=== PATIENT | female | born 1990 | race Caucasian/White ===

== ENCOUNTER 2019-10-15 16:40 | Emergency (ER) | payer OTHER ==
--- NOTE | 2019-10-15 16:45 | PDOC ---
Rapid Medical Evaluation Time Seen by Provider: 10/15/19 16:43 Medical Evaluation: Allergies Allergy/AdvReac Type Severity Reaction Status Date / Time No Known Allergies Allergy Verified 06/05/16 18:01 10/15/19 16:44 have performed a brief in-person evaluation of this patient. The patient presents with a chief complaint of: possible R wrist injury. Pt w/ h /o MR, non-verbal, W/C bound, seizures, from [facility] and [facility] staff after staff noted swelling to R wrist after pt returned from school today. No witnessed injury. Baseline otherwise Pertinent physical exam findings:? mild swelling to R wrist compared to L, no erythema. Pt does not grimace in pain w/ palpation to site I have ordered the following:XR The patient will proceed to the ED for further evaluation. Discharge Disposition - Diagnosis Wrist swelling Qualifiers: Laterality: right Qualified Code(s): M25.431 - Effusion, right wrist - Referrals - Patient Instructions - Post Discharge Activity
[2019-10-15 16:57] VITALS: BP 108/65; PULSE 85; TEMP 98; BMI 18.8
--- NOTE | 2019-10-15 17:49 | PDOC ---
History of Present Illness - General Chief Complaint: Pain Stated Complaint: POSSIBLE FRACTURE Time Seen by Provider: 10/15/19 16:43 Past History - Past Medical History Allergies/Adverse Reactions: Allergies Allergy/AdvReac Type Severity Reaction Status Date / Time No Known Allergies Allergy Verified 10/15/19 16:47 Home Medications: Ambulatory Orders Albuterol 2.5/Ipratropium 0.5 [Duoneb -] 1 neb IH QID 06/05/16 Baclofen 10 mg GT BID 06/05/16 Glycopyrrolate 0.5 mg GT BID 06/05/16 Lamotrigine 25 mg GT BID 06/05/16 Metoclopramide HCl 1.6 mg GT TID 06/05/16 Olopatadine HCl [Pataday] 2.5 ml OP DAILY 06/05/16 Rufinamide [Banzel] 400 mg GT BID 06/05/16 Sennosides [Senna -] 8.6 tab GT DAILY 06/05/16 Valproic Acid (As Sodium Salt) [Valproic Acid] 750 mg GT DAILY 06/05/16 Valproic Acid [Depakene] 500 mg GT AM 06/05/16 Glycopyrrolate [Robinul -] 0.5 mg GT BID #0 tablet 06/12/16 Olopatadine HCl [Pataday] 1 ml OU DAILY 06/12/16 COPD: No GI Disorders: Yes (g-tube) Seizures: Yes Other medical history: Mental retardation, osteoporosis - Surgical History GI Surgery: Yes (gtube) - Psycho Social/Smoking Cessation Hx Smoking History: Never smoked Information on smoking cessation initiated: No Hx Alcohol Use: No Drug/Substance Use Hx: No Review of Systems - Review of Systems Able to Perform ROS?: No (Nonverbal) *Physical Exam - Vital Signs Last Vital Signs Temp Pulse Resp BP Pulse Ox 98 F 85 19 108/65 99 10/15/19 16:44 10/15/19 16:44 10/15/19 16:44 10/15/19 16:44 10/15/19 16:44 - Physical Exam 10/15/19 17:45 GENERAL: The patient is awake, alert, and fully oriented, in no acute distress. HEAD: Normal with no signs of trauma. EYES: Pupils equal, round and reactive to light, extraocular movements intact, sclera anicteric, conjunctiva clear. EXTREMITIES: Patient is contractured at baseline with ulnar deviation. Bruise noted to the ventral aspect of the right wrist. Mild associated swelling noted. Patient is able to move her fingers if helps. Patient is moving her wrist. Patient does not retract in obvious pain. Normal range of motion, no edema. NEUROLOGICAL: Normal speech, normal gait. PSYCH: Normal mood, normal affect. SKIN: Warm, Dry, normal turgor, no rashes or lesions noted. Medical Decision Making - Medical Decision Making 10/15/19 17:47 Patient is a 29-year-old female, from the [facility], with profound retardation, seizure disorder, presents to the ER with right right wrist bruising. The staff noticed when she came home from school today that she had bruising and swelling to the right wrist. They are unsure if it is broken so they came to the ER for evaluation. The patient is nonverbal at baseline. A/P: Right wrist swelling. See exam findings. X-rays read by radiology shows no acute findings. We will place patient in the [place] wrap for comfort and discharge home. Will refer to orthopedics for further management and evaluation of her symptoms. I discussed the physical exam findings, ancillary test results and final diagnoses with the patient. I answered all of the patient's questions. The patient was satisfied with the care received and felt comfortable with the discharge plan and treatment plan. The Patient agrees to follow up with the primary care physician/specialist within 24-72 hours. Return precautions were given. Discharge - Discharge Information Problems reviewed: Yes Clinical Impression/Diagnosis: Wrist swelling Qualifiers: Laterality: right Qualified Code(s): M25.431 - Effusion, right wrist Condition: Stable Disposition: HOME - Admission No - Follow up/Referral Referrals: Mukesh Kelley MD [Staff Physician] - - Patient Discharge Instructions Patient Printed Discharge Instructions: DI for Wrist Pain Additional Instructions: Alex's x-ray did not show an obvious fracture today. Please have her follow-up with orthopedics this week for further management and treatment of her symptoms. She may have Tylenol or Motrin as needed for pain. These medications are over- the-counter and please follow the dosing instructions on the bottle. Return to the ER for any new or worsening symptoms. - Post Discharge Activity Work/Back to School Note: Back to School
== END 2019-10-15 17:52 | disposition home or self-care (01) ==
LOC: JERFT 16:40
DX: M25.431 Effusion, right wrist (principal); F79 Unspecified intellectual disabilities; G40.909 Epilepsy, unspecified, not intractable, without status epilepticus
CPT/HCPCS: 73110-TC-RT-FY; 73130-TC-RT-FY; 99283-25

== ENCOUNTER 2020-05-25 19:10 | Inpatient (IN) | payer OTHER ==
[2020-05-25] MEDS ORDERED: methylPREDNISolone NA SUCC 125 MG/2 ML VIAL IVPB ONE (19:45)
[2020-05-25] MEDS ORDERED: ALBUTEROL SO4 HFA INHALER IH ONE ×2 (19:45→20:34)
[2020-05-25] MEDS ORDERED: MAGNESIUM SULF 50% (8.12 MEQ/2 ML-1 GM VIAL) IVPB ONE (19:45)
[2020-05-25] MEDS ORDERED: MAGNESIUM 1GM/D5W - 1 GM/100 ML IVPB IVPB ONE (20:30)
[2020-05-25] MEDS ORDERED: methylPREDNISolone NA SUCC 125 MG/2 ML VIAL ONE (20:30)
[2020-05-25 20:40] LABS: BASO % 0.3 % (0-2.0); EOS % 1.8 % (0-4.5); HEMATOCRIT 40.7 % (32.4-45.2); HEMOGLOBIN 14.2 GM/dL (10.7-15.3); LYMPH % 36.6 % (8-40); MCH 35.3 pg (25.7-33.7); MCHC 34.8 g/dl (32.0-36.0); MEAN CELL VOLUME 101.5 fl (80-96); MEAN PLT VOLUME 8.3 fl (7.5-11.1); MONO % 8.8 % (3.8-10.2); NEUT % 52.5 % (42.8-82.8); PLATELET COUNT 192 K/MM3 (134-434); RBC 4.01 M/mm3 (3.60-5.2); RDW 12.8 % (11.6-15.6); WHITE BLOOD COUNT 6.9 K/mm3 (4.0-10.0)
[2020-05-25 20:56] LABS: INR 0.98 (0.83-1.09); PROTHROMBIN TIME (PATIENT) 11.6 SEC (9.7-13.0)
[2020-05-25 21:01] LABS: VENOUS BASE EXCESS 0.5 mmol/L (-2-2); VENOUS O2 SATURATION 92.2 % (70-80); VENOUS PCO2 40.8 mmHg (38-52); VENOUS PH 7.409 (7.310-7.410)
[2020-05-25 21:07] LABS: ALBUMIN 3.2 g/dl (3.4-5.0); BILIRUBIN,TOTAL 0.3 mg/dL (0.2-1); BLOOD UREA NITROGEN 6.2 mg/dL (7-18); CALCIUM 9.1 mg/dL (8.5-10.1); CREATININE 0.3 mg/dL (0.55-1.3); MAGNESIUM 2.1 mg/dL (1.8-2.4); POTASSIUM 4.1 mmol/L (3.5-5.1); TOT PROT 7.6 g/dl (6.4-8.2)
[2020-05-25] MEDS ORDERED: CLINDAMYCIN 600MG PREMIX IVPB 600 MG/50 ML BAG IVPB ONE ×2 (21:43→21:55)
[2020-05-25] MEDS ORDERED: CEFTRIAXONE 1 GM/50 ML BAG ONE (21:55)
[2020-05-26] MEDS ORDERED: ALBUTEROL SO4 HFA INHALER IH PRN (01:45)
[2020-05-26] MEDS ORDERED: VALPROIC ACID 500 MG GT SCH (07:00)
[2020-05-26 08:26] LABS: ALBUMIN 2.9 g/dl (3.4-5.0); BILIRUBIN,TOTAL 0.4 mg/dL (0.2-1); BLOOD UREA NITROGEN 8.9 mg/dL (7-18); CREATININE 0.3 mg/dL (0.55-1.3); MAGNESIUM 2.5 mg/dL (1.8-2.4); PHOSPHOROUS 5.2 mg/dL (2.5-4.9); POTASSIUM 4.7 mmol/L (3.5-5.1)
[2020-05-26 08:32] LABS: BASO % 0.2 % (0-2.0); HEMATOCRIT 39.6 % (32.4-45.2); HEMOGLOBIN 13.4 GM/dL (10.7-15.3); LYMPH % 17.7 % (8-40); MCH 34.5 pg (25.7-33.7); MCHC 33.9 g/dl (32.0-36.0); MEAN CELL VOLUME 101.6 fl (80-96); MONO % 2.6 % (3.8-10.2); NEUT % 79.5 % (42.8-82.8); PLATELET COUNT 179 K/MM3 (134-434); RDW 12.7 % (11.6-15.6); WHITE BLOOD COUNT 7.7 K/mm3 (4.0-10.0)
[2020-05-26] MEDS ORDERED: AMPICILLIN NA/SULBACTAM NA 1.5 GM VIAL ONE ×3 (08:42→20:56)
[2020-05-26] MEDS ORDERED: SODIUM CHLORIDE 100 ML IVPB ONE ×3 (08:42→20:57)
[2020-05-26] MEDS ORDERED: predniSONE 20 MG TABLET (UD) PO SCH (10:00)
[2020-05-26] MEDS ORDERED: VALPROIC ACID GT SCH (10:00)
[2020-05-26] MEDS ORDERED: SENNOSIDES 8.6MG TABLET (FP) PO SCH (10:00)
[2020-05-26] MEDS ORDERED: RUFINAMIDE 400 MG GT SCH (10:00)
[2020-05-26] MEDS ORDERED: LAMOTRIGINE 25 MG GT SCH (10:00)
[2020-05-26] MEDS: BACLOFEN 10 MG TABLET (FP) GT SCH ×2 (10:51→22:10)
[2020-05-26] MEDS: lamoTRIgine 25 MG TABLET NR SCH ×2 (10:51→22:11)
[2020-05-26] MEDS: VALPROATE SODIUM 250 MG/5 ML UNIT DOSE CUP GT SCH ×2 (10:52→22:11)
[2020-05-26] MEDS: AMPICILLIN NA/SULBACTAM NA 1.5 GM in SODIUM CHLORIDE 100 ML IVPB SCH ×3 (10:52→22:11)
[2020-05-26] MEDS: ENOXAPARIN NA (PORCINE) 40 MG/0.4 ML DISP.SYRIN SQ SCH (10:53)
[2020-05-26] MEDS: GLYCOPYRROLATE 1 MG TABLET GT SCH ×2 (11:58→22:11)
[2020-05-26] MEDS: SENNOSIDES 8.6MG TABLET (FP) PO SCH (12:47)
[2020-05-26] MEDS ORDERED: PT OWN MED DRAWER 7, Y5N ONE ×2 (20:56→20:58)
[2020-05-26] MEDS ORDERED: VALPROATE SODIUM GT SCH (22:00)
[2020-05-27] MEDS ORDERED: SODIUM CHLORIDE 100 ML IVPB ONE ×5 (02:11→20:56)
[2020-05-27] MEDS ORDERED: AMPICILLIN NA/SULBACTAM NA 1.5 GM VIAL ONE ×5 (02:11→20:56)
[2020-05-27] MEDS: AMPICILLIN NA/SULBACTAM NA 1.5 GM in SODIUM CHLORIDE 100 ML IVPB SCH ×4 (02:23→22:23)
[2020-05-27 07:52] LABS: BASO % 0.3 % (0-2.0); EOS % 1.9 % (0-4.5); HEMOGLOBIN 12.7 GM/dL (10.7-15.3); LYMPH % 44.8 % (8-40); MCH 34.7 pg (25.7-33.7); MCHC 34.3 g/dl (32.0-36.0); MEAN CELL VOLUME 101.2 fl (80-96); MEAN PLT VOLUME 7.6 fl (7.5-11.1); MONO % 9.7 % (3.8-10.2); NEUT % 43.3 % (42.8-82.8); PLATELET COUNT 175 K/MM3 (134-434); RBC 3.66 M/mm3 (3.60-5.2); RDW 12.7 % (11.6-15.6); WHITE BLOOD COUNT 4.4 K/mm3 (4.0-10.0)
[2020-05-27 08:27] LABS: ALBUMIN 2.6 g/dl (3.4-5.0); BILIRUBIN,TOTAL 0.2 mg/dL (0.2-1); BLOOD UREA NITROGEN 12.6 mg/dL (7-18); CALCIUM 8.3 mg/dL (8.5-10.1); CREATININE 0.2 mg/dL (0.55-1.3); MAGNESIUM 2.2 mg/dL (1.8-2.4); POTASSIUM 4.5 mmol/L (3.5-5.1); TOT PROT 6.3 g/dl (6.4-8.2)
[2020-05-27] MEDS: SENNOSIDES 8.6MG TABLET (FP) PO SCH (10:50)
[2020-05-27] MEDS: lamoTRIgine 25 MG TABLET NR SCH ×2 (10:50→22:22)
[2020-05-27] MEDS: ENOXAPARIN NA (PORCINE) 40 MG/0.4 ML DISP.SYRIN SQ SCH (10:50)
[2020-05-27] MEDS: BACLOFEN 10 MG TABLET (FP) GT SCH ×2 (10:50→22:22)
[2020-05-27] MEDS: GLYCOPYRROLATE 1 MG TABLET GT SCH ×2 (10:51→22:22)
[2020-05-27] MEDS: VALPROATE SODIUM 250 MG/5 ML UNIT DOSE CUP GT SCH ×2 (10:51→22:23)
[2020-05-27 16:02] VITALS: BMI 26.3
[2020-05-27] MEDS ORDERED: FLU VACCINE (FLULAVAL) PF 60 MCG/0.5 ML SYRINGE 2020-2021 IM ONE (18:15)
[2020-05-27] MEDS ORDERED: PT OWN MED DRAWER 7, Y5N ONE (20:55)
[2020-05-28] MEDS ORDERED: AMPICILLIN NA/SULBACTAM NA 1.5 GM VIAL ONE ×2 (02:29→09:59)
[2020-05-28] MEDS ORDERED: SODIUM CHLORIDE 100 ML IVPB ONE ×2 (02:30→09:59)
[2020-05-28] MEDS: AMPICILLIN NA/SULBACTAM NA 1.5 GM in SODIUM CHLORIDE 100 ML IVPB SCH ×2 (02:30→11:03)
[2020-05-28 06:46] VITALS: TEMP 98.7
[2020-05-28 08:56] LABS: BASO % 0.4 % (0-2.0); EOS % 5.2 % (0-4.5); HEMATOCRIT 38.2 % (32.4-45.2); HEMOGLOBIN 13.3 GM/dL (10.7-15.3); MCH 35.2 pg (25.7-33.7); MCHC 34.7 g/dl (32.0-36.0); MEAN CELL VOLUME 101.2 fl (80-96); MONO % 10.4 % (3.8-10.2); PLATELET COUNT 166 K/MM3 (134-434); RBC 3.78 M/mm3 (3.60-5.2); RDW 12.2 % (11.6-15.6); WHITE BLOOD COUNT 4.5 K/mm3 (4.0-10.0)
[2020-05-28 09:17] LABS: ALBUMIN 2.7 g/dl (3.4-5.0); BILIRUBIN,TOTAL 0.3 mg/dL (0.2-1); CALCIUM 8.5 mg/dL (8.5-10.1); CREATININE 0.3 mg/dL (0.55-1.3); MAGNESIUM 2.1 mg/dL (1.8-2.4); POTASSIUM 4.5 mmol/L (3.5-5.1); TOT PROT 6.5 g/dl (6.4-8.2)
[2020-05-28] MEDS: VALPROATE SODIUM 250 MG/5 ML UNIT DOSE CUP GT SCH (10:29)
[2020-05-28] MEDS: lamoTRIgine 25 MG TABLET NR SCH (10:31)
[2020-05-28] MEDS: ENOXAPARIN NA (PORCINE) 40 MG/0.4 ML DISP.SYRIN SQ SCH (10:31)
[2020-05-28] MEDS: BACLOFEN 10 MG TABLET (FP) GT SCH (10:31)
[2020-05-28] MEDS: GLYCOPYRROLATE 1 MG TABLET GT SCH (10:33)
[2020-05-28] MEDS: SENNOSIDES 8.6MG TABLET (FP) PO SCH (11:32)
[2020-05-28 13:30] VITALS: BP 117/74; PULSE 88
[2020-05-28] MEDS ORDERED: AMOX TR/POT CLAV 875MG/125MG TABLETS (FP) PO SCH (17:30)
== END 2020-05-28 13:37 | DRG 137 ==
LOC: JER 19:10 → JERBED 21:43 → J8W 23:34
PROVIDERS: ADMIT Hospitalist; ATTEND Nurse Practitioner Acute Care
DX: J69.0 Pneumonitis due to inhalation of food and vomit (principal); J45.901 Unspecified asthma with (acute) exacerbation; F73 Profound intellectual disabilities; G40.909 Epilepsy, unspecified, not intractable, without status epilepticus; M24.50 Contracture, unspecified joint; Z93.1 Gastrostomy status; H47.619 Cortical blindness, unspecified side of brain; R53.2 Functional quadriplegia; J96.01 Acute respiratory failure with hypoxia; G80.9 Cerebral palsy, unspecified
CPT/HCPCS: 36415; 71045-TC-FY; 80053; 82803; 83605; 83735; 84100; 85025; 85610; 87040; 93005; 93010; 94761; 99285-25; C9803; G0008; J0475; Q2036; U0003

== ENCOUNTER 2021-09-10 17:50 | Observation (INO) | payer OTHER ==
[2021-09-10 18:24] VITALS: BMI 26.7
[2021-09-10] MEDS ORDERED: PANTOPRAZOLE SODIUM 40 MG VIAL IVPUSH ONE (19:32)
[2021-09-10] MEDS ORDERED: PANTOPRAZOLE SODIUM 40 MG/100 ML BAG IVPB ONE (19:39)
[2021-09-10] MEDS ORDERED: ACETAMINOPHEN 1000 MG/100 ML BAG IVPB ONE (19:56)
[2021-09-10] MEDS ORDERED: ACETAMINOPHEN INJECTION 100 ML IVPB ONE (19:57)
[2021-09-10 19:58] LABS: BASO % 0.2 % (0-2.0); EOS % 0.1 % (0-4.5); HEMATOCRIT 43.7 % (32.4-45.2); HEMOGLOBIN 14.8 GM/dL (10.7-15.3); LYMPH % 14.8 % (8-40); MCH 34.2 pg (25.7-33.7); MCHC 33.8 g/dl (32.0-36.0); MEAN CELL VOLUME 101.2 fl (80-96); MEAN PLT VOLUME 9.1 fl (7.5-11.1); MONO % 4.3 % (3.8-10.2); NEUT % 80.6 % (42.8-82.8); PLATELET COUNT 193 10^3/uL (134-434); RBC 4.32 M/mm3 (3.60-5.2); RDW 14.1 % (11.6-15.6); WHITE BLOOD COUNT 7.1 K/mm3 (4.0-10.0)
[2021-09-10] MEDS ORDERED: LIDOCAINE VISCOUS 2% ORAL/TOP 15 ML UNIT-DOSE CUP MM ONE (21:26)
[2021-09-10] MEDS ORDERED: MAG HYDROX/AL HYDROX/SIMETH 30 ML UNIT-DOSE CUP PEG ONE (21:26)
[2021-09-10] MEDS ORDERED: MAG HYDROX/AL HYDROX/SIMETH 30 ML UNIT-DOSE CUP ONE (21:27)
[2021-09-10] MEDS ORDERED: LIDOCAINE VISCOUS 2% ORAL/TOP 15 ML UNIT-DOSE CUP ONE (21:27)
[2021-09-10] MEDS ORDERED: LACTATED RINGERS SOLUTION 1000 ML INFUS.BAG IV ONE (21:43)
[2021-09-10 21:45] LABS: CHLORIDE 100 mmol/L (98-107); SODIUM 135 mmol/L (136-145)
[2021-09-10 21:48] LABS: ANION GAP 7 MMOL/L (8-16); BLOOD UREA NITROGEN 9.4 mg/dL (7-18); CALCIUM 9.8 mg/dL (8.5-10.1); CO2 28 mmol/L (21-32); GLUCOSE,RANDOM 105 mg/dL (74-106); LIPASE 123 U/L (73-393)
[2021-09-10 21:51] LABS: CREATININE 0.4 mg/dL (0.55-1.3); SGOT/AST 14 U/L (15-37); SGPT/ALT 14 U/L (13-61)
[2021-09-10 21:53] LABS: BILIRUBIN,TOTAL 0.5 mg/dL (0.2-1)
[2021-09-10 21:54] LABS: ALK PHOS 70 U/L (45-117)
[2021-09-10 22:12] LABS: ALBUMIN 3.6 g/dl (3.4-5.0); TOT PROT 7.8 g/dl (6.4-8.2)
[2021-09-11] MEDS ORDERED: ALBUTEROL SO4 HFA INHALER IH PRN (00:56)
[2021-09-11] MEDS ORDERED: SODIUM CHLORIDE 1,000 ML IV SCH ×2 (01:00→09:48)
[2021-09-11] MEDS: AMPICILLIN NA/SULBACTAM NA 1.5 GM in SODIUM CHLORIDE 100 ML IVPB SCH ×4 (03:24→21:33)
[2021-09-11 07:46] LABS: BASO % 0.3 % (0-2.0); EOS % 0.4 % (0-4.5); HEMATOCRIT 38.4 % (32.4-45.2); HEMOGLOBIN 13.2 GM/dL (10.7-15.3); LYMPH % 33.4 % (8-40); MCHC 34.4 g/dl (32.0-36.0); MEAN CELL VOLUME 101.7 fl (80-96); MEAN PLT VOLUME 8.2 fl (7.5-11.1); MONO % 11.6 % (3.8-10.2); NEUT % 54.3 % (42.8-82.8); PLATELET COUNT 155 10^3/uL (134-434); RBC 3.78 M/mm3 (3.60-5.2); RDW 12.9 % (11.6-15.6); WHITE BLOOD COUNT 6.4 K/mm3 (4.0-10.0)
[2021-09-11] MEDS: ALBUTEROL SO4 2.5/IPRATROPIUM 0.5 INH SOL 3 ML VIAL.NEB. NEB SCH ×4 (08:15→20:12)
[2021-09-11 08:31] LABS: ALBUMIN 3.4 g/dl (3.4-5.0); CALCIUM 9.1 mg/dL (8.5-10.1)
[2021-09-11 08:32] LABS: MAGNESIUM 2.1 mg/dL (1.8-2.4)
[2021-09-11 08:32] LABS: LACTIC ACID 2.4 mmol/L (0.4-2.0)
[2021-09-11 08:33] LABS: PHOSPHOROUS 3.4 mg/dL (2.5-4.9)
[2021-09-11 08:34] LABS: BILIRUBIN,TOTAL 0.4 mg/dL (0.2-1); CREATININE 0.4 mg/dL (0.55-1.3); TOT PROT 7.4 g/dl (6.4-8.2)
[2021-09-11] MEDS ORDERED: SODIUM CHLORIDE 100 ML IVPB ONE ×3 (08:40→20:12)
[2021-09-11] MEDS ORDERED: AMPICILLIN NA/SULBACTAM NA 1.5 GM VIAL ONE ×3 (08:40→20:12)
[2021-09-11] MEDS ORDERED: SODIUM CHLORIDE 0.9% 1000 ML INFUS.BAG IV ONE (09:51)
[2021-09-11] MEDS ORDERED: PATIENT'S OWN MEDICATION (NON-FORMULARY) (Rufinamide 400 MG Tablet) GT SCH (10:00)
[2021-09-11] MEDS: VALPROATE SODIUM 250 MG/5 ML UNIT DOSE CUP GT SCH (11:57)
[2021-09-11] MEDS: PANTOPRAZOLE SODIUM 40 MG VIAL IVPUSH SCH ×2 (11:57→22:26)
[2021-09-11] MEDS: lamoTRIgine 25 MG TABLET NR SCH ×2 (11:57→22:26)
[2021-09-11] MEDS: GLYCOPYRROLATE 1 MG TABLET GT SCH ×2 (11:58→22:26)
[2021-09-11 15:01] LABS: LACTIC ACID 2.8 mmol/L (0.4-2.0)
[2021-09-11] MEDS: SODIUM CHLORIDE 1,000 ML IV SCH ×2 (15:30→20:30)
[2021-09-11] MEDS ORDERED: MINERAL OIL ENEMA 133 ML ENEMA RC ONE (15:56)
[2021-09-11 21:53] LABS: LACTIC ACID 2.9 mmol/L (0.4-2.0)
[2021-09-11] MEDS ORDERED: VALPROATE SODIUM 250 MG/5 ML UNIT DOSE CUP GT SCH (22:00)
[2021-09-11] MEDS ORDERED: SODIUM CHLORIDE 1,000 ML IV STA (22:08)
[2021-09-11] MEDS: POLYETHYLENE GLYCOL (HEALTHYLAX) 3350 17 GM PACKET NGT SCH (22:25)
[2021-09-12] MEDS ORDERED: AMPICILLIN NA/SULBACTAM NA 1.5 GM VIAL ONE ×3 (01:32→14:42)
[2021-09-12] MEDS ORDERED: SODIUM CHLORIDE 100 ML IVPB ONE ×3 (01:33→14:42)
[2021-09-12] MEDS: AMPICILLIN NA/SULBACTAM NA 1.5 GM in SODIUM CHLORIDE 100 ML IVPB SCH ×3 (01:59→14:48)
[2021-09-12] MEDS: SODIUM CHLORIDE 1,000 ML IV SCH (05:00)
[2021-09-12] MEDS: POLYETHYLENE GLYCOL (HEALTHYLAX) 3350 17 GM PACKET NGT SCH ×2 (06:25→14:48)
[2021-09-12 08:08] LABS: HEMATOCRIT 35.9 % (32.4-45.2); HEMOGLOBIN 12.4 GM/dL (10.7-15.3); MCHC 34.4 g/dl (32.0-36.0); MEAN CELL VOLUME 101.7 fl (80-96); MEAN PLT VOLUME 8.1 fl (7.5-11.1); PLATELET COUNT 160 10^3/uL (134-434); RBC 3.53 M/mm3 (3.60-5.2); RDW 12.7 % (11.6-15.6); WHITE BLOOD COUNT 6.9 K/mm3 (4.0-10.0)
[2021-09-12] MEDS: ALBUTEROL SO4 2.5/IPRATROPIUM 0.5 INH SOL 3 ML VIAL.NEB. NEB SCH ×3 (08:15→15:40)
[2021-09-12 08:58] LABS: CHLORIDE 105 mmol/L (98-107); SODIUM 138 mmol/L (136-145)
[2021-09-12] MEDS: GLYCOPYRROLATE 1 MG TABLET GT SCH (09:02)
[2021-09-12] MEDS: VALPROATE SODIUM 250 MG/5 ML UNIT DOSE CUP GT SCH (09:02)
[2021-09-12] MEDS: PANTOPRAZOLE SODIUM 40 MG VIAL IVPUSH SCH (09:02)
[2021-09-12] MEDS: lamoTRIgine 25 MG TABLET NR SCH (09:02)
[2021-09-12 09:05] LABS: CALCIUM 8.3 mg/dL (8.5-10.1)
[2021-09-12 09:06] LABS: ALBUMIN 3.1 g/dl (3.4-5.0); ANION GAP 9 MMOL/L (8-16); CO2 24 mmol/L (21-32); GLUCOSE,RANDOM 71 mg/dL (74-106); MAGNESIUM 1.8 mg/dL (1.8-2.4)
[2021-09-12 09:08] LABS: SGPT/ALT 12 U/L (13-61)
[2021-09-12 09:09] LABS: CREATININE 0.3 mg/dL (0.55-1.3); PHOSPHOROUS 3.4 mg/dL (2.5-4.9); SGOT/AST 15 U/L (15-37)
[2021-09-12 09:10] LABS: BILIRUBIN,TOTAL 0.5 mg/dL (0.2-1)
[2021-09-12 09:11] LABS: ALK PHOS 58 U/L (45-117)
[2021-09-12 10:37] LABS: BLOOD UREA NITROGEN 2.4 mg/dL (7-18)
[2021-09-12 14:55] VITALS: BP 129/77; PULSE 127; TEMP 98
== END 2021-09-12 18:39 ==
LOC: JER 17:50 → JERBED 23:28 → INTOOBSV 23:28 → J4W 09-11 00:53
PROVIDERS: ADMIT Family Medicine; ATTEND Internal Medicine
PROC: 3E03329 Introduction of Other Anti-infective into Peripheral Vein, Percutaneous Approach (ICD-10-PCS; principal; 2021-09-10)
PROC: 3E033NZ Introduction of Analgesics, Hypnotics, Sedatives into Peripheral Vein, Percutaneous Approach (ICD-10-PCS; 2021-09-10)
PROC: 3E0F7GC Introduction of Other Therapeutic Substance into Respiratory Tract, Via Natural or Artificial Opening (ICD-10-PCS; 2021-09-10)
PROC: 3E0337Z Introduction of Electrolytic and Water Balance Substance into Peripheral Vein, Percutaneous Approach (ICD-10-PCS; 2021-09-10)
PROC: 3E033GC Introduction of Other Therapeutic Substance into Peripheral Vein, Percutaneous Approach (ICD-10-PCS; 2021-09-10)
DX: K56.41 Fecal impaction (principal); Z93.1 Gastrostomy status; G80.9 Cerebral palsy, unspecified; J45.909 Unspecified asthma, uncomplicated; G40.901 Epilepsy, unspecified, not intractable, with status epilepticus; J69.0 Pneumonitis due to inhalation of food and vomit; R00.0 Tachycardia, unspecified; K13.79 Other lesions of oral mucosa; M62.429 Contracture of muscle, unspecified upper arm; H47.619 Cortical blindness, unspecified side of brain; R10.13 Epigastric pain
CPT/HCPCS: 36415; 71045-TC-FY; 76705-TC; 80053; 82550; 82607; 82746; 83605; 83690; 83735; 84100; 84484; 85025; 85027; 87804; 87807; 93005; 93010; 94640; 96361; 96365; 96375; 99285-25; C9803; G0378; J0131; U0003; U0005

== ENCOUNTER 2023-02-04 04:14 | Inpatient (IN) | payer OTHER ==
[2023-02-04] MEDS ORDERED: ACETAMINOPHEN 1000 MG/100 ML BAG IVPB ONE (04:21)
[2023-02-04] MEDS ORDERED: ACETAMINOPHEN INJECTION 100 ML IVPB ONE (04:57)
[2023-02-04 04:58] LABS: URINE APPEARANCE CLEAR; URINE BILIRUBIN NEGATIVE (NEGATIVE); URINE COLOR YELLOW; URINE GLUCOSE (UA) NEGATIVE (NEGATIVE); URINE KETONE NEGATIVE (NEGATIVE); URINE LEUK ESTERASE NEGATIVE (NEGATIVE); URINE NITRITE NEGATIVE (NEGATIVE); URINE PROTEIN NEGATIVE (NEGATIVE)
[2023-02-04] MEDS ORDERED: RACEPINEPHRINE IH SOL 2.25% 11.25 MG/0.5 ML VIAL IH ONE (05:21)
[2023-02-04] MEDS ORDERED: ATROPINE SO4 0.4 MG/1 ML VIAL IVPUSH ONE (05:23)
[2023-02-04 05:27] LABS: BASO % 0.3 % (0-2.0); EOS % 0.2 % (0-4.5); HEMATOCRIT 39.1 % (32.4-45.2); HEMOGLOBIN 13.7 GM/dL (10.7-15.3); LYMPH % 9.4 % (8-40); MCH 35.1 pg (25.7-33.7); MCHC 34.9 g/dl (32.0-36.0); MEAN CELL VOLUME 100.6 fl (80-96); MEAN PLT VOLUME 8.5 fl (7.5-11.1); MONO % 4.5 % (3.8-10.2); NEUT % 85.6 % (42.8-82.8); PLATELET COUNT 226 10^3/uL (134-434); RBC 3.89 M/mm3 (3.60-5.2); RDW 13.5 % (11.6-15.6)
[2023-02-04] MEDS ORDERED: ATROPINE SULFATE 1 MG/10 ML DISP.SYRIN ONE (05:28)
[2023-02-04] MEDS ORDERED: RACEPINEPHRINE IH SOL 2.25% 11.25 MG/0.5 ML VIAL NEB ONE (05:29)
[2023-02-04 05:32] LABS: VENOUS BASE EXCESS -2.7 mmol/L (-2-2); VENOUS O2 SATURATION 67.2 % (70-80); VENOUS PCO2 40.5 mmHg (38-52); VENOUS PH 7.363 (7.310-7.410)
[2023-02-04 05:41] LABS: INR 1.03 (0.83-1.09)
[2023-02-04 05:43] LABS: ACTIVATED PTT 34.7 SECONDS (25.2-36.5)
[2023-02-04 05:46] LABS: POTASSIUM 4.5 mmol/L (3.5-5.1)
[2023-02-04 05:48] LABS: BLOOD UREA NITROGEN 5.6 mg/dL (7-18); CALCIUM 8.9 mg/dL (8.5-10.1)
[2023-02-04 05:49] LABS: ALBUMIN 3.4 g/dl (3.4-5.0)
[2023-02-04 05:52] LABS: CREATININE 0.4 mg/dL (0.55-1.3)
[2023-02-04 05:53] LABS: BILIRUBIN,TOTAL 0.4 mg/dL (0.2-1); TOT PROT 7.9 g/dl (6.4-8.2)
[2023-02-04 05:57] LABS: N-TERMINAL BNP 206.2 pg/ml (5-125)
[2023-02-04 06:00] LABS: LACTIC ACID 2.6 mmol/L (0.4-2.0)
[2023-02-04] MEDS ORDERED: SODIUM CHLORIDE 0.9% 500 ML INFUS.BAG IV ONE ×2 (06:13→06:14)
[2023-02-04] MEDS ORDERED: PIPERACILLIN/TAZOB 4.5 GM 4.5 GM in DEXTROSE 5%-WATER 100 ML IVPB ONE (06:22)
[2023-02-04] MEDS ORDERED: VANCOMYCIN 1 GM in D5W (PRE-DOCKED) 1,000 MG/250 ML (RESTRICTED TO ID ONLY IVPB ONE (06:22)
[2023-02-04] MEDS ORDERED: PIPERACILLIN/TAZOB 4.5 GM 4.5 GM/100 ML BAG IVPB ONE (06:34)
[2023-02-04] MEDS ORDERED: VANCOMYCIN/WATER FOR INJ (PEG) 1,000 MG/200 ML BAG IVPB ONE (07:49)
[2023-02-04] MEDS ORDERED: SODIUM CHLORIDE 500 ML IV STA (07:52)
[2023-02-04] MEDS ORDERED: ACETAMINOPHEN 325 MG TABLET (FP) PO PRN (08:07)
[2023-02-04] MEDS ORDERED: VALPROATE SODIUM 250 MG/5 ML UNIT DOSE CUP GT SCH (10:00)
[2023-02-04] MEDS: SODIUM CHLORIDE 1,000 ML IV SCH (12:00)
[2023-02-04] MEDS: FLUTICASONE PROP 0.05% 16 GM NASAL SPRAY NS SCH (15:07)
[2023-02-04] MEDS: POLYETHYLENE GLYCOL (HEALTHYLAX) 3350 17 GM PACKET GT SCH (15:07)
[2023-02-04] MEDS: ENOXAPARIN NA (PORCINE) 40 MG/0.4 ML DISP.SYRIN SQ SCH (15:07)
[2023-02-04] MEDS: BACLOFEN 10 MG TABLET (FP) GT SCH ×2 (15:07→21:50)
[2023-02-04] MEDS: lamoTRIgine 25 MG TABLET GT SCH ×2 (15:07→21:51)
[2023-02-04] MEDS: VALPROATE SODIUM 250 MG/5 ML UNIT DOSE CUP GT SCH ×2 (15:08→21:50)
[2023-02-04] MEDS ORDERED: POLYETHYLENE GLYCOL (HEALTHYLAX) 3350 17 GM PACKET GT ONE (15:30)
[2023-02-04] MEDS: PIPERACILLIN/TAZOB 3.375 GM 3.375 GM in DEXTROSE 5%-WATER - 50 ML IVPB SCH (17:50)
[2023-02-04] MEDS ORDERED: VANCOMYCIN 1 GM in D5W (PRE-DOCKED) 1,000 MG/250 ML (RESTRICTED TO ID ONLY IVPB SCH (18:00)
[2023-02-04] MEDS ORDERED: PIPERACILLIN/TAZOB 3.375 GM 3.375 GM in DEXTROSE 5%-WATER - 50 ML IVPB SCH (18:00)
[2023-02-04 20:00] LABS: CHLORIDE 104 mmol/L (98-107); SODIUM 138 mmol/L (136-145)
[2023-02-04 20:02] LABS: ANION GAP 8 MMOL/L (8-16); CALCIUM 8.3 mg/dL (8.5-10.1); CO2 26 mmol/L (21-32)
[2023-02-04 20:03] LABS: GLUCOSE,RANDOM 92 mg/dL (74-106)
[2023-02-04 20:06] LABS: CREATININE 0.3 mg/dL (0.55-1.3)
[2023-02-04] MEDS: VANCOMYCIN/WATER FOR INJ (PEG) 1,000 MG/200 ML BAG IVPB SCH (20:08)
[2023-02-04 20:16] LABS: BLOOD UREA NITROGEN 2.3 mg/dL (7-18)
[2023-02-05] MEDS: PIPERACILLIN/TAZOB 3.375 GM 3.375 GM in DEXTROSE 5%-WATER - 50 ML IVPB SCH ×3 (01:12→18:26)
[2023-02-05] MEDS: SODIUM CHLORIDE 1,000 ML IV SCH (07:29)
[2023-02-05] MEDS: ALBUTEROL SO4 2.5/IPRATROPIUM 0.5 INH SOL 3 ML VIAL.NEB. NEB SCH ×4 (07:35→20:48)
[2023-02-05 08:10] LABS: BASO % 0.3 % (0-2.0); EOS % 2.6 % (0-4.5); HEMATOCRIT 37.4 % (32.4-45.2); HEMOGLOBIN 12.9 GM/dL (10.7-15.3); LYMPH % 38.9 % (8-40); MCH 35.2 pg (25.7-33.7); MCHC 34.4 g/dl (32.0-36.0); MEAN CELL VOLUME 102.2 fl (80-96); MEAN PLT VOLUME 7.7 fl (7.5-11.1); MONO % 7.3 % (3.8-10.2); NEUT % 50.9 % (42.8-82.8); PLATELET COUNT 141 10^3/uL (134-434); RBC 3.66 M/mm3 (3.60-5.2); RDW 13.5 % (11.6-15.6); WHITE BLOOD COUNT 5.4 K/mm3 (4.0-10.0)
[2023-02-05] MEDS: VANCOMYCIN/WATER FOR INJ (PEG) 1,000 MG/200 ML BAG IVPB SCH (08:15)
[2023-02-05 08:24] LABS: INR 0.97 (0.83-1.09); PROTHROMBIN TIME (PATIENT) 11.2 SEC (9.7-13.0)
[2023-02-05 08:27] LABS: ACTIVATED PTT 32.4 SECONDS (25.2-36.5)
[2023-02-05 08:30] LABS: POTASSIUM 3.7 mmol/L (3.5-5.1)
[2023-02-05 08:39] LABS: BLOOD UREA NITROGEN 4.3 mg/dL (7-18); CREATININE 0.3 mg/dL (0.55-1.3)
[2023-02-05 08:40] LABS: BILIRUBIN,TOTAL 0.3 mg/dL (0.2-1); TOT PROT 6.9 g/dl (6.4-8.2)
[2023-02-05 08:41] LABS: CALCIUM 8.6 mg/dL (8.5-10.1); MAGNESIUM 2.6 mg/dL (1.8-2.4)
[2023-02-05 08:42] LABS: PHOSPHOROUS 2.9 mg/dL (2.5-4.9)
[2023-02-05] MEDS: lamoTRIgine 25 MG TABLET GT SCH ×2 (09:00→22:50)
[2023-02-05] MEDS: POLYETHYLENE GLYCOL (HEALTHYLAX) 3350 17 GM PACKET GT SCH (09:00)
[2023-02-05] MEDS: FLUTICASONE PROP 0.05% 16 GM NASAL SPRAY NS SCH (09:00)
[2023-02-05] MEDS: VALPROATE SODIUM 250 MG/5 ML UNIT DOSE CUP GT SCH ×2 (09:00→22:50)
[2023-02-05] MEDS: BACLOFEN 10 MG TABLET (FP) GT SCH ×2 (09:00→22:50)
[2023-02-05] MEDS: ENOXAPARIN NA (PORCINE) 40 MG/0.4 ML DISP.SYRIN SQ SCH (09:01)
[2023-02-05] MEDS: AZITHROMYCIN IVPB 500 MG/250 ML BAG IVPB SCH (11:07)
[2023-02-06] MEDS: PIPERACILLIN/TAZOB 3.375 GM 3.375 GM in DEXTROSE 5%-WATER - 50 ML IVPB SCH ×3 (01:21→18:09)
[2023-02-06] MEDS: SODIUM CHLORIDE 1,000 ML IV SCH ×2 (01:25→09:47)
[2023-02-06] MEDS: AZITHROMYCIN IVPB 500 MG/250 ML BAG IVPB SCH (09:25)
[2023-02-06] MEDS: VALPROATE SODIUM 250 MG/5 ML UNIT DOSE CUP GT SCH ×2 (09:27→23:03)
[2023-02-06] MEDS: ENOXAPARIN NA (PORCINE) 40 MG/0.4 ML DISP.SYRIN SQ SCH (09:27)
[2023-02-06] MEDS: BACLOFEN 10 MG TABLET (FP) GT SCH ×2 (09:27→23:04)
[2023-02-06] MEDS: ALBUTEROL SO4 2.5/IPRATROPIUM 0.5 INH SOL 3 ML VIAL.NEB. NEB SCH ×6 (09:28→20:35)
[2023-02-06] MEDS: POLYETHYLENE GLYCOL (HEALTHYLAX) 3350 17 GM PACKET GT SCH (09:28)
[2023-02-06] MEDS: lamoTRIgine 25 MG TABLET GT SCH ×2 (09:30→23:25)
[2023-02-06] MEDS: FLUTICASONE PROP 0.05% 16 GM NASAL SPRAY NS SCH (09:31)
[2023-02-06] MEDS ORDERED: ALBUTEROL SO4 2.5/IPRATROPIUM 0.5 INH SOL 3 ML VIAL.NEB. NEB ONE ×2 (09:58→12:04)
[2023-02-06] MEDS ORDERED: ACETAMINOPHEN 1000 MG/100 ML BAG IVPB PRN (21:51)
[2023-02-06] MEDS: SENNOSIDES 8.8 MG/5 ML SYRUP PO SCH (23:05)
[2023-02-07] MEDS: PIPERACILLIN/TAZOB 3.375 GM 3.375 GM in DEXTROSE 5%-WATER - 50 ML IVPB SCH ×3 (02:47→17:44)
[2023-02-07] MEDS: ALBUTEROL SO4 2.5/IPRATROPIUM 0.5 INH SOL 3 ML VIAL.NEB. NEB SCH ×4 (07:30→20:15)
[2023-02-07] MEDS: SODIUM CHLORIDE 1,000 ML IV SCH (09:19)
[2023-02-07] MEDS: VALPROATE SODIUM 250 MG/5 ML UNIT DOSE CUP GT SCH ×2 (10:04→22:00)
[2023-02-07] MEDS: ENOXAPARIN NA (PORCINE) 40 MG/0.4 ML DISP.SYRIN SQ SCH (10:04)
[2023-02-07] MEDS: BACLOFEN 10 MG TABLET (FP) GT SCH ×2 (10:05→22:00)
[2023-02-07] MEDS: POLYETHYLENE GLYCOL (HEALTHYLAX) 3350 17 GM PACKET GT SCH (10:05)
[2023-02-07] MEDS: lamoTRIgine 25 MG TABLET GT SCH ×2 (10:05→22:00)
[2023-02-07] MEDS: FLUTICASONE PROP 0.05% 16 GM NASAL SPRAY NS SCH (10:07)
[2023-02-07] MEDS: AZITHROMYCIN IVPB 500 MG/250 ML BAG IVPB SCH (11:03)
[2023-02-07 13:02] LABS: BASO % 0.1 % (0-2.0); EOS % 1.3 % (0-4.5); HEMATOCRIT 34.2 % (32.4-45.2); HEMOGLOBIN 11.6 GM/dL (10.7-15.3); LYMPH % 42.8 % (8-40); MCH 34.2 pg (25.7-33.7); MCHC 33.9 g/dl (32.0-36.0); MEAN CELL VOLUME 100.6 fl (80-96); MEAN PLT VOLUME 7.4 fl (7.5-11.1); MONO % 7.8 % (3.8-10.2); PLATELET COUNT 107 10^3/uL (134-434); RDW 13.5 % (11.6-15.6); WHITE BLOOD COUNT 5.4 K/mm3 (4.0-10.0)
[2023-02-07 14:17] LABS: POTASSIUM 3.8 mmol/L (3.5-5.1)
[2023-02-07 14:18] LABS: CALCIUM 8.7 mg/dL (8.5-10.1)
[2023-02-07 14:22] LABS: CREATININE 0.3 mg/dL (0.55-1.3)
[2023-02-07] MEDS: SENNOSIDES 8.8 MG/5 ML SYRUP PO SCH (22:00)
[2023-02-08] VITALS: BMI 22.1
[2023-02-08] MEDS ORDERED: ACETAMINOPHEN 325 MG TABLET (FP) PO PRN (02:00)
[2023-02-08] MEDS: PIPERACILLIN/TAZOB 3.375 GM 3.375 GM in DEXTROSE 5%-WATER - 50 ML IVPB SCH ×3 (02:51→17:44)
[2023-02-08] MEDS: SODIUM CHLORIDE 1,000 ML IV SCH ×2 (06:16→10:58)
[2023-02-08] MEDS: ALBUTEROL SO4 2.5/IPRATROPIUM 0.5 INH SOL 3 ML VIAL.NEB. NEB SCH ×4 (08:40→20:10)
[2023-02-08] MEDS: POLYETHYLENE GLYCOL (HEALTHYLAX) 3350 17 GM PACKET GT SCH (10:55)
[2023-02-08] MEDS: VALPROATE SODIUM 250 MG/5 ML UNIT DOSE CUP GT SCH ×2 (10:55→21:46)
[2023-02-08] MEDS: lamoTRIgine 25 MG TABLET GT SCH ×2 (10:56→21:45)
[2023-02-08] MEDS: ENOXAPARIN NA (PORCINE) 40 MG/0.4 ML DISP.SYRIN SQ SCH (10:58)
[2023-02-08] MEDS: BACLOFEN 10 MG TABLET (FP) GT SCH ×2 (10:58→21:46)
[2023-02-08] MEDS: AZITHROMYCIN IVPB 500 MG/250 ML BAG IVPB SCH (11:00)
[2023-02-08] MEDS: FLUTICASONE PROP 0.05% 16 GM NASAL SPRAY NS SCH (11:04)
[2023-02-08 12:16] LABS: HEMOGLOBIN 12.5 GM/dL (10.7-15.3); MCH 34.4 pg (25.7-33.7); MCHC 34.6 g/dl (32.0-36.0); MEAN CELL VOLUME 99.3 fl (80-96); MEAN PLT VOLUME 7.2 fl (7.5-11.1); PLATELET COUNT 139 10^3/uL (134-434); RBC 3.62 M/mm3 (3.60-5.2); RDW 12.8 % (11.6-15.6); WHITE BLOOD COUNT 5.8 K/mm3 (4.0-10.0)
[2023-02-08 12:55] LABS: POTASSIUM 4.5 mmol/L (3.5-5.1)
[2023-02-08 12:56] LABS: CALCIUM 9.5 mg/dL (8.5-10.1)
[2023-02-08 12:57] LABS: BLOOD UREA NITROGEN 5.6 mg/dL (7-18)
[2023-02-08 13:01] LABS: CREATININE 0.3 mg/dL (0.55-1.3)
[2023-02-08] MEDS ORDERED: PIPERACILLIN/TAZOBACTAM 3.375 GM VIAL IVPB ONE (16:48)
[2023-02-08] MEDS: SENNOSIDES 8.8 MG/5 ML SYRUP PO SCH (21:46)
[2023-02-09] MEDS: PIPERACILLIN/TAZOB 3.375 GM 3.375 GM in DEXTROSE 5%-WATER - 50 ML IVPB SCH ×3 (02:56→18:01)
[2023-02-09] MEDS: ALBUTEROL SO4 2.5/IPRATROPIUM 0.5 INH SOL 3 ML VIAL.NEB. NEB SCH ×4 (07:10→19:45)
[2023-02-09 07:53] LABS: HEMATOCRIT 35.5 % (32.4-45.2); HEMOGLOBIN 12.3 GM/dL (10.7-15.3); MCH 34.7 pg (25.7-33.7); MCHC 34.6 g/dl (32.0-36.0); MEAN CELL VOLUME 100.1 fl (80-96); MEAN PLT VOLUME 7.2 fl (7.5-11.1); PLATELET COUNT 143 10^3/uL (134-434); RBC 3.55 M/mm3 (3.60-5.2)
[2023-02-09 08:06] LABS: POTASSIUM 4.9 mmol/L (3.5-5.1)
[2023-02-09 08:07] LABS: CALCIUM 9.2 mg/dL (8.5-10.1)
[2023-02-09 08:08] LABS: BLOOD UREA NITROGEN 8.9 mg/dL (7-18)
[2023-02-09 08:11] LABS: CREATININE 0.3 mg/dL (0.55-1.3)
[2023-02-09] MEDS: AMINO ACIDS/PROTEIN HYDROLYS 30 ML LIQUID.PKT PO SCH (09:12)
[2023-02-09] MEDS: POLYETHYLENE GLYCOL (HEALTHYLAX) 3350 17 GM PACKET GT SCH (10:11)
[2023-02-09] MEDS: VALPROATE SODIUM 250 MG/5 ML UNIT DOSE CUP GT SCH ×2 (10:12→22:08)
[2023-02-09] MEDS: BACLOFEN 10 MG TABLET (FP) GT SCH ×2 (10:12→22:09)
[2023-02-09] MEDS: ENOXAPARIN NA (PORCINE) 40 MG/0.4 ML DISP.SYRIN SQ SCH (10:13)
[2023-02-09] MEDS: AZITHROMYCIN IVPB 500 MG/250 ML BAG IVPB SCH (10:18)
[2023-02-09] MEDS: FLUTICASONE PROP 0.05% 16 GM NASAL SPRAY NS SCH (10:41)
[2023-02-09] MEDS: lamoTRIgine 25 MG TABLET GT SCH ×2 (11:26→22:09)
[2023-02-09] MEDS ORDERED: ACETAMINOPHEN 325 MG TABLET (FP) PO PRN ×2 (12:23→12:45)
[2023-02-09] MEDS ORDERED: guaiFENesin 200 MG/10 ML 10 ML UNIT-DOSE CUPS PO PRN (12:24)
[2023-02-09] MEDS: SENNOSIDES 8.8 MG/5 ML SYRUP PO SCH (22:09)
[2023-02-09] MEDS: SODIUM CHLORIDE 1,000 ML IV SCH (22:10)
[2023-02-10] MEDS: PIPERACILLIN/TAZOB 3.375 GM 3.375 GM in DEXTROSE 5%-WATER - 50 ML IVPB SCH ×3 (02:28→17:19)
[2023-02-10] MEDS: AMINO ACIDS/PROTEIN HYDROLYS 30 ML LIQUID.PKT PO SCH (08:24)
[2023-02-10] MEDS: ALBUTEROL SO4 2.5/IPRATROPIUM 0.5 INH SOL 3 ML VIAL.NEB. NEB SCH ×4 (08:30→20:34)
[2023-02-10 09:59] LABS: HEMATOCRIT 35.1 % (32.4-45.2); HEMOGLOBIN 11.8 GM/dL (10.7-15.3); MCH 34.2 pg (25.7-33.7); MCHC 33.6 g/dl (32.0-36.0); MEAN CELL VOLUME 101.7 fl (80-96); MEAN PLT VOLUME 7.6 fl (7.5-11.1); PLATELET COUNT 167 10^3/uL (134-434); RBC 3.45 M/mm3 (3.60-5.2); RDW 12.8 % (11.6-15.6); WHITE BLOOD COUNT 4.6 K/mm3 (4.0-10.0)
[2023-02-10] MEDS: lamoTRIgine 25 MG TABLET GT SCH ×2 (10:52→22:08)
[2023-02-10] MEDS: BACLOFEN 10 MG TABLET (FP) GT SCH ×2 (10:52→22:08)
[2023-02-10] MEDS: VALPROATE SODIUM 250 MG/5 ML UNIT DOSE CUP GT SCH ×2 (10:52→22:08)
[2023-02-10] MEDS: POLYETHYLENE GLYCOL (HEALTHYLAX) 3350 17 GM PACKET GT SCH (10:53)
[2023-02-10] MEDS: ENOXAPARIN NA (PORCINE) 40 MG/0.4 ML DISP.SYRIN SQ SCH (10:53)
[2023-02-10] MEDS: FLUTICASONE PROP 0.05% 16 GM NASAL SPRAY NS SCH (10:54)
[2023-02-10] MEDS: SENNOSIDES 8.8 MG/5 ML SYRUP PO SCH (22:12)
[2023-02-11] MEDS: PIPERACILLIN/TAZOB 3.375 GM 3.375 GM in DEXTROSE 5%-WATER - 50 ML IVPB SCH ×2 (01:57→12:45)
[2023-02-11] MEDS ORDERED: TUBE FEED DECLOGGING SOLUTION 12,000 UNITS GT SCH (02:00)
[2023-02-11] MEDS: VALPROATE SODIUM 250 MG/5 ML UNIT DOSE CUP GT SCH ×2 (05:23→22:10)
[2023-02-11] MEDS: lamoTRIgine 25 MG TABLET GT SCH ×3 (05:24→22:11)
[2023-02-11] MEDS: SENNOSIDES 8.8 MG/5 ML SYRUP PO SCH ×2 (05:25→22:10)
[2023-02-11] MEDS: BACLOFEN 10 MG TABLET (FP) GT SCH ×3 (05:25→22:10)
[2023-02-11] MEDS ORDERED: TUBE FEED DECLOGGING SOLUTION 12,000 UNITS GT ONE ×2 (05:40→06:30)
[2023-02-11] MEDS ORDERED: VALPROATE SODIUM 500 MG/5 ML VIAL IVPB SCH (06:45)
[2023-02-11] MEDS: VALPROATE SODIUM INJECTION 375 MG in SODIUM CHLORIDE 100 ML IVPB SCH ×2 (07:11→18:06)
[2023-02-11] MEDS: ALBUTEROL SO4 2.5/IPRATROPIUM 0.5 INH SOL 3 ML VIAL.NEB. NEB SCH ×4 (07:55→20:33)
[2023-02-11] MEDS ORDERED: DEXTROSE 5%-0.45% SALINE 1,000 ML IV SCH (08:00)
[2023-02-11 09:30] LABS: BASO % 0.4 % (0-2.0); EOS % 1.7 % (0-4.5); HEMATOCRIT 39.1 % (32.4-45.2); HEMOGLOBIN 13.2 GM/dL (10.7-15.3); LYMPH % 51.5 % (8-40); MCH 34.1 pg (25.7-33.7); MCHC 33.8 g/dl (32.0-36.0); MEAN CELL VOLUME 101.1 fl (80-96); MEAN PLT VOLUME 7.4 fl (7.5-11.1); MONO % 9.4 % (3.8-10.2); PLATELET COUNT 260 10^3/uL (134-434); RBC 3.87 M/mm3 (3.60-5.2); RDW 12.8 % (11.6-15.6)
[2023-02-11] MEDS: AMINO ACIDS/PROTEIN HYDROLYS 30 ML LIQUID.PKT PO SCH (09:33)
[2023-02-11 09:50] LABS: POTASSIUM 4.6 mmol/L (3.5-5.1)
[2023-02-11 09:52] LABS: BLOOD UREA NITROGEN 10.4 mg/dL (7-18); CALCIUM 9.9 mg/dL (8.5-10.1)
[2023-02-11 09:55] LABS: CREATININE 0.4 mg/dL (0.55-1.3)
[2023-02-11] MEDS: FLUTICASONE PROP 0.05% 16 GM NASAL SPRAY NS SCH (10:29)
[2023-02-11] MEDS: ENOXAPARIN NA (PORCINE) 40 MG/0.4 ML DISP.SYRIN SQ SCH (10:45)
[2023-02-11] MEDS: POLYETHYLENE GLYCOL (HEALTHYLAX) 3350 17 GM PACKET GT SCH (13:28)
[2023-02-12] MEDS: VALPROATE SODIUM 250 MG/5 ML UNIT DOSE CUP GT SCH ×2 (10:03→22:17)
[2023-02-12] MEDS: lamoTRIgine 25 MG TABLET GT SCH ×2 (10:04→22:17)
[2023-02-12] MEDS: ENOXAPARIN NA (PORCINE) 40 MG/0.4 ML DISP.SYRIN SQ SCH (10:04)
[2023-02-12] MEDS: BACLOFEN 10 MG TABLET (FP) GT SCH ×2 (10:04→22:17)
[2023-02-12] MEDS: POLYETHYLENE GLYCOL (HEALTHYLAX) 3350 17 GM PACKET GT SCH (10:04)
[2023-02-12] MEDS: AMINO ACIDS/PROTEIN HYDROLYS 30 ML LIQUID.PKT PO SCH (10:04)
[2023-02-12] MEDS: FLUTICASONE PROP 0.05% 16 GM NASAL SPRAY NS SCH (10:05)
[2023-02-12 12:19] LABS: HEMATOCRIT 38.6 % (32.4-45.2); HEMOGLOBIN 12.7 GM/dL (10.7-15.3); MCH 33.5 pg (25.7-33.7); MEAN CELL VOLUME 101.3 fl (80-96); MEAN PLT VOLUME 7.3 fl (7.5-11.1); PLATELET COUNT 359 10^3/uL (134-434); RBC 3.81 M/mm3 (3.60-5.2); RDW 12.7 % (11.6-15.6); WHITE BLOOD COUNT 6.8 K/mm3 (4.0-10.0)
[2023-02-12 12:41] LABS: POTASSIUM 4.4 mmol/L (3.5-5.1)
[2023-02-12 12:42] LABS: CALCIUM 9.2 mg/dL (8.5-10.1)
[2023-02-12 12:46] LABS: CREATININE 0.3 mg/dL (0.55-1.3)
[2023-02-12] MEDS: SENNOSIDES 8.8 MG/5 ML SYRUP PO SCH (22:17)
[2023-02-13] MEDS: lamoTRIgine 25 MG TABLET GT SCH ×2 (10:30→23:59)
[2023-02-13] MEDS: ENOXAPARIN NA (PORCINE) 40 MG/0.4 ML DISP.SYRIN SQ SCH (10:30)
[2023-02-13] MEDS: AMINO ACIDS/PROTEIN HYDROLYS 30 ML LIQUID.PKT PO SCH (10:30)
[2023-02-13] MEDS: POLYETHYLENE GLYCOL (HEALTHYLAX) 3350 17 GM PACKET GT SCH (10:30)
[2023-02-13] MEDS: BACLOFEN 10 MG TABLET (FP) GT SCH (10:30)
[2023-02-13] MEDS: VALPROATE SODIUM 250 MG/5 ML UNIT DOSE CUP GT SCH (10:30)
[2023-02-13] MEDS: FLUTICASONE PROP 0.05% 16 GM NASAL SPRAY NS SCH (10:31)
[2023-02-13] MEDS ORDERED: SCOPOLAMINE HYDROBROMIDE 1 PATCH PATCH.TD72 TD SCH (18:15)
[2023-02-14] MEDS: VALPROATE SODIUM 250 MG/5 ML UNIT DOSE CUP GT SCH ×3 (00:37→22:58)
[2023-02-14 02:29] VITALS: RESP 18
[2023-02-14] MEDS: BACLOFEN 10 MG TABLET (FP) GT SCH ×3 (12:23→22:59)
[2023-02-14] MEDS: lamoTRIgine 25 MG TABLET GT SCH ×2 (12:23→22:58)
[2023-02-14] MEDS: POLYETHYLENE GLYCOL (HEALTHYLAX) 3350 17 GM PACKET GT SCH (12:23)
[2023-02-14] MEDS: AMINO ACIDS/PROTEIN HYDROLYS 30 ML LIQUID.PKT PO SCH (12:23)
[2023-02-14] MEDS: FLUTICASONE PROP 0.05% 16 GM NASAL SPRAY NS SCH (12:24)
[2023-02-14] MEDS: SENNOSIDES 8.8 MG/5 ML SYRUP PO SCH ×2 (22:59)
[2023-02-15] MEDS: AMINO ACIDS/PROTEIN HYDROLYS 30 ML LIQUID.PKT PO SCH (08:44)
[2023-02-15] MEDS: lamoTRIgine 25 MG TABLET GT SCH (10:06)
[2023-02-15] MEDS: FLUTICASONE PROP 0.05% 16 GM NASAL SPRAY NS SCH (10:06)
[2023-02-15] MEDS: BACLOFEN 10 MG TABLET (FP) GT SCH (10:12)
[2023-02-15] MEDS: POLYETHYLENE GLYCOL (HEALTHYLAX) 3350 17 GM PACKET GT SCH (10:12)
[2023-02-15] MEDS: VALPROATE SODIUM 250 MG/5 ML UNIT DOSE CUP GT SCH (10:35)
[2023-02-15] MEDS ORDERED: ENOXAPARIN NA (PORCINE) 40 MG/0.4 ML DISP.SYRIN SQ SCH (12:45)
[2023-02-15 16:30] VITALS: BP 111/50; PULSE 75; TEMP 98.6
== END 2023-02-15 17:34 | DRG 720 ==
LOC: JER 04:14 → JERBED 06:23 → J4W 09:57 → J6S 02-05 15:44
PROVIDERS: ADMIT Internal Medicine; ATTEND Internal Medicine
PROC: 0D20XUZ Change Feeding Device in Upper Intestinal Tract, External Approach (ICD-10-PCS; principal; 2023-02-11)
DX: A41.89 Other specified sepsis (principal); J69.0 Pneumonitis due to inhalation of food and vomit; J96.01 Acute respiratory failure with hypoxia; B34.1 Enterovirus infection, unspecified; F73 Profound intellectual disabilities; H47.619 Cortical blindness, unspecified side of brain; J45.909 Unspecified asthma, uncomplicated; E87.20 Acidosis, unspecified; R53.2 Functional quadriplegia; E87.1 Hypo-osmolality and hyponatremia; G80.9 Cerebral palsy, unspecified; R00.0 Tachycardia, unspecified; K94.23 Gastrostomy malfunction; E86.0 Dehydration; M85.88 Other specified disorders of bone density and structure, other site; Q04.3 Other reduction deformities of brain; Z93.1 Gastrostomy status
CPT/HCPCS: 0241U-QW; 36415; 71045-TC-FY; 71250-TC; 74018-TC-FY; 80048; 80053; 81003; 82803; 83605; 83735; 83880; 84100; 84484; 85025; 85027; 85610; 85730; 87040; 87081; 87086; 87633; 87899; 93005; 93010; 94640; 94761; 99285-25; J0475

== ENCOUNTER 2023-08-13 09:50 | Inpatient (IN) | payer OTHER ==
[2023-08-13] MEDS ORDERED: ACETAMINOPHEN 1000 MG/100 ML BAG IVPB ONE (10:44)
[2023-08-13] MEDS ORDERED: ACETAMINOPHEN INJECTION 100 ML IVPB ONE (11:10)
[2023-08-13 11:36] LABS: PH,URINE 7.5 (5.0-8.0); URINE APPEARANCE CLEAR; URINE BILIRUBIN NEGATIVE (NEGATIVE); URINE COLOR YELLOW; URINE GLUCOSE (UA) NEGATIVE (NEGATIVE); URINE KETONE NEGATIVE (NEGATIVE); URINE LEUK ESTERASE NEGATIVE (NEGATIVE); URINE NITRITE NEGATIVE (NEGATIVE); URINE PROTEIN NEGATIVE (NEGATIVE); URINE UROBILINOGEN 0.2 mg/dL (0.2-1.0)
[2023-08-13 11:37] LABS: BASO % 0.2 % (0-2.0); HEMATOCRIT 37.6 % (32.4-45.2); LYMPH % 13.3 % (8-40); MCH 34.7 pg (25.7-33.7); MCHC 34.7 g/dl (32.0-36.0); MEAN CELL VOLUME 100.2 fl (80-96); MEAN PLT VOLUME 8.2 fl (7.5-11.1); MONO % 10.5 % (3.8-10.2); PLATELET COUNT 143 10^3/uL (134-434); RBC 3.76 M/mm3 (3.60-5.2); RDW 13.3 % (11.6-15.6); WHITE BLOOD COUNT 3.8 K/mm3 (4.0-10.0)
[2023-08-13 11:40] LABS: VENOUS BASE EXCESS 1.5 mmol/L (-2-2); VENOUS O2 SATURATION 94.2 % (70-80); VENOUS PCO2 37.8 mmHg (38-52); VENOUS PH 7.446 (7.310-7.410)
[2023-08-13] MEDS ORDERED: SODIUM CHLORIDE 1,000 ML IV STA (11:57)
[2023-08-13 12:00] LABS: LACTIC ACID 3.5 mmol/L (0.4-2.0)
[2023-08-13] MEDS ORDERED: PIPERACILLIN/TAZOB 3.375 GM 3.375 GM in DEXTROSE 5%-WATER - 50 ML IVPB ONE (12:04)
[2023-08-13] MEDS ORDERED: VANCOMYCIN 1,000 MG in DEXTROSE 5%-WATER - 250 ML IVPB ONE (12:05)
[2023-08-13 12:11] LABS: CHLORIDE 92 mmol/L (98-107); POTASSIUM 3.6 mmol/L (3.5-5.1); SODIUM 128 mmol/L (136-145)
[2023-08-13] MEDS ORDERED: VANCOMYCIN 1 GRAM (PRE-DOCKED) 1,000 MG/250 ML BAG IVPB ONE (12:12)
[2023-08-13 12:13] LABS: CALCIUM 9.1 mg/dL (8.5-10.1)
[2023-08-13] MEDS ORDERED: PIPERACILLIN/TAZOB 3.375 GM 3.375 GM/50 ML BAG IVPB ONE (12:13)
[2023-08-13 12:14] LABS: ALBUMIN 2.9 g/dl (3.4-5.0); ANION GAP 11 mmol/L (4-13); CO2 25 mmol/L (21-32); GLUCOSE,RANDOM 116 mg/dL (74-106)
[2023-08-13 12:16] LABS: SGPT/ALT 16 U/L (13-61)
[2023-08-13 12:17] LABS: CREATININE 0.4 mg/dL (0.55-1.3); SGOT/AST 18 U/L (15-37)
[2023-08-13 12:18] LABS: BILIRUBIN,TOTAL 0.1 mg/dL (0.2-1); TOT PROT 7.1 g/dl (6.4-8.2)
[2023-08-13 12:19] LABS: ALK PHOS 61 U/L (45-117)
[2023-08-13 12:21] LABS: BLOOD UREA NITROGEN 2.7 mg/dL (7-18)
[2023-08-13] MEDS ORDERED: SODIUM CHLORIDE 0.9% 1000 ML INFUS.BAG IV ONE (12:55)
[2023-08-13] MEDS: ALBUTEROL SO4 2.5/IPRATROPIUM 0.5 INH SOL 3 ML VIAL.NEB. NEB SCH ×2 (15:45→21:36)
[2023-08-13] MEDS ORDERED: ALBUTEROL SO4 2.5/IPRATROPIUM 0.5 INH SOL 3 ML VIAL.NEB. NEB ONE ×2 (15:45→21:38)
[2023-08-13] MEDS ORDERED: PIPERACILLIN/TAZOB 4.5 GM 4.5 GM/100 ML BAG IVPB ONE (16:51)
[2023-08-13] MEDS: PIPERACILLIN/TAZOB 4.5 GM 4.5 GM in DEXTROSE 5%-WATER 100 ML IVPB SCH (17:01)
[2023-08-13] MEDS ORDERED: ALBUTEROL SO4 2.5/IPRATROPIUM 0.5 INH SOL 3 ML VIAL.NEB. NEB SCH (18:00)
[2023-08-13] MEDS: VALPROATE SODIUM 250 MG/5 ML UNIT DOSE CUP GT SCH (18:12)
[2023-08-14] MEDS ORDERED: BACLOFEN 10 MG TABLET (FP) ONE (04:44)
[2023-08-14] MEDS ORDERED: HEPARIN NA (PORCINE) 5,000 UNITS/ML 1ML VIAL ONE (04:45)
[2023-08-14] MEDS ORDERED: METOCLOPRAMIDE HCL 10 MG TABLET (FP) PO ONE (04:45)
[2023-08-14] MEDS ORDERED: lamoTRIgine 25 MG TABLET ONE (04:45)
[2023-08-14] MEDS ORDERED: LORATADINE 10 MG TABLET ONE (04:45)
[2023-08-14] MEDS ORDERED: PIPERACILLIN/TAZOB 4.5 GM 4.5 GM/100 ML BAG IVPB ONE ×2 (04:46→10:01)
[2023-08-14] MEDS ORDERED: ALBUTEROL SO4 2.5/IPRATROPIUM 0.5 INH SOL 3 ML VIAL.NEB. NEB ONE (04:48)
[2023-08-14] MEDS: lamoTRIgine 25 MG TABLET PO SCH ×2 (04:48→10:37)
[2023-08-14] MEDS: BACLOFEN 10 MG TABLET (FP) GT SCH ×3 (04:48→21:19)
[2023-08-14] MEDS: HEPARIN NA (PORCINE) 5,000 UNITS/ML 1ML VIAL SQ SCH ×3 (04:48→21:19)
[2023-08-14] MEDS: LORATADINE 10 MG TABLET GT SCH ×2 (04:48→21:18)
[2023-08-14] MEDS: PIPERACILLIN/TAZOB 4.5 GM 4.5 GM in DEXTROSE 5%-WATER 100 ML IVPB SCH ×5 (04:49→18:50)
[2023-08-14] MEDS: METOCLOPRAMIDE HCL 10 MG/10 ML UNIT DOSE CUP GT SCH ×3 (04:49→14:47)
[2023-08-14] MEDS: ALBUTEROL SO4 2.5/IPRATROPIUM 0.5 INH SOL 3 ML VIAL.NEB. NEB SCH ×3 (04:49→20:20)
[2023-08-14] MEDS: GLYCOPYRROLATE 1 MG TABLET GT SCH ×3 (04:49→21:23)
[2023-08-14] MEDS ORDERED: VALPROATE SODIUM 250 MG/5 ML UNIT DOSE CUP GT SCH (06:00)
[2023-08-14] MEDS: SODIUM CHLORIDE 1,000 ML IV SCH (08:56)
[2023-08-14] MEDS: POLYETHYLENE GLYCOL (HEALTHYLAX) 3350 17 GM PACKET GT SCH (10:36)
[2023-08-14] MEDS: SENNOSIDES 8.6MG TABLET (FP) PO SCH (10:37)
[2023-08-14 11:54] LABS: BASO % 0.2 % (0-2.0); HEMOGLOBIN 12.3 GM/dL (10.7-15.3); LYMPH % 25.6 % (8-40); MCH 34.8 pg (25.7-33.7); MCHC 34.2 g/dl (32.0-36.0); MEAN CELL VOLUME 101.8 fl (80-96); MEAN PLT VOLUME 7.3 fl (7.5-11.1); MONO % 14.6 % (3.8-10.2); NEUT % 59.6 % (42.8-82.8); PLATELET COUNT 161 10^3/uL (134-434); RBC 3.54 M/mm3 (3.60-5.2); RDW 13.3 % (11.6-15.6); WHITE BLOOD COUNT 5.7 K/mm3 (4.0-10.0)
[2023-08-14] MEDS: FLUTICASONE PROP 0.05% 16 GM NASAL SPRAY NS SCH (11:57)
[2023-08-14 12:14] LABS: POTASSIUM 3.4 mmol/L (3.5-5.1)
[2023-08-14 12:16] LABS: BLOOD UREA NITROGEN 5.3 mg/dL (7-18); CALCIUM 8.7 mg/dL (8.5-10.1)
[2023-08-14 12:20] LABS: CREATININE 0.4 mg/dL (0.55-1.3)
[2023-08-14] MEDS ORDERED: PIPERACILLIN/TAZOBACTAM 4.5 GM VIAL IVPB ONE (17:07)
[2023-08-14] MEDS: VALPROATE SODIUM 250 MG/5 ML UNIT DOSE CUP GT SCH (17:24)
[2023-08-14] MEDS: ACETAMINOPHEN 650 MG/20.3 ML ORAL SOLUTION (CUPS) GT PRN (17:24)
[2023-08-14] MEDS ORDERED: guaiFENesin/D-M SUGAR-FREE/ACLHOL-FREE (200 MG/10 MG) 5 ML GT PRN (18:25)
[2023-08-14] MEDS ORDERED: POTASSIUM CHLORIDE ORAL LIQUID 20 MEQ/15 ML PO ONE (19:02)
[2023-08-14] MEDS ORDERED: POTASSIUM CHLORIDE ORAL LIQUID 20 MEQ/15 ML GT ONE (20:17)
[2023-08-14] MEDS: lamoTRIgine 25 MG TABLET GT SCH (21:18)
[2023-08-15] MEDS: METOCLOPRAMIDE HCL 10 MG/10 ML UNIT DOSE CUP GT SCH ×3 (00:07→23:04)
[2023-08-15] MEDS: ALBUTEROL SO4 2.5/IPRATROPIUM 0.5 INH SOL 3 ML VIAL.NEB. NEB SCH ×6 (00:15→20:39)
[2023-08-15] MEDS: PIPERACILLIN/TAZOB 4.5 GM 4.5 GM in DEXTROSE 5%-WATER 100 ML IVPB SCH ×3 (02:24→17:56)
[2023-08-15 09:48] LABS: BASO % 0.2 % (0-2.0); EOS % 0.1 % (0-4.5); HEMATOCRIT 32.7 % (32.4-45.2); HEMOGLOBIN 11.1 GM/dL (10.7-15.3); LYMPH % 44.2 % (8-40); MCH 34.8 pg (25.7-33.7); MCHC 33.9 g/dl (32.0-36.0); MEAN CELL VOLUME 102.5 fl (80-96); MEAN PLT VOLUME 7.5 fl (7.5-11.1); MONO % 8.6 % (3.8-10.2); NEUT % 46.9 % (42.8-82.8); PLATELET COUNT 142 10^3/uL (134-434); RBC 3.18 M/mm3 (3.60-5.2); RDW 13.1 % (11.6-15.6); WHITE BLOOD COUNT 4.2 K/mm3 (4.0-10.0)
[2023-08-15] MEDS: BACLOFEN 10 MG TABLET (FP) GT SCH ×2 (10:23→23:04)
[2023-08-15] MEDS: lamoTRIgine 25 MG TABLET GT SCH ×2 (10:23→23:03)
[2023-08-15] MEDS: SENNOSIDES 8.6MG TABLET (FP) PO SCH (10:23)
[2023-08-15] MEDS: GLYCOPYRROLATE 1 MG TABLET GT SCH ×2 (10:23→23:08)
[2023-08-15] MEDS: POLYETHYLENE GLYCOL (HEALTHYLAX) 3350 17 GM PACKET GT SCH (10:25)
[2023-08-15] MEDS: HEPARIN NA (PORCINE) 5,000 UNITS/ML 1ML VIAL SQ SCH ×2 (10:25→23:03)
[2023-08-15] MEDS: SODIUM CHLORIDE 1,000 ML IV SCH (10:35)
[2023-08-15 11:06] LABS: ALBUMIN 2.2 g/dl (3.4-5.0); BILIRUBIN,TOTAL 0.3 mg/dL (0.2-1); BLOOD UREA NITROGEN 4.9 mg/dL (7-18); CALCIUM 7.7 mg/dL (8.5-10.1); CREATININE 0.2 mg/dL (0.55-1.3); MAGNESIUM 2.4 mg/dL (1.8-2.4); PHOSPHOROUS 3.1 mg/dL (2.5-4.9); POTASSIUM 3.9 mmol/L (3.5-5.1); TOT PROT 5.7 g/dl (6.4-8.2)
[2023-08-15] MEDS: FLUTICASONE PROP 0.05% 16 GM NASAL SPRAY NS SCH (12:41)
[2023-08-15 13:28] VITALS: BMI 24.7
[2023-08-15] MEDS: LACTOBACILLUS ACIDOPHILUS 1 TABLET GT SCH (16:50)
[2023-08-15] MEDS: LORATADINE 10 MG TABLET GT SCH (23:03)
[2023-08-15] MEDS: RUFINAMIDE 40 MG/ML GT SCH (23:12)
[2023-08-15] MEDS: [UNRECOGNIZED DRUG - OTHER] GT SCH (23:12)
[2023-08-16] MEDS: ALBUTEROL SO4 2.5/IPRATROPIUM 0.5 INH SOL 3 ML VIAL.NEB. NEB SCH ×6 (00:32→20:22)
[2023-08-16] MEDS: PIPERACILLIN/TAZOB 4.5 GM 4.5 GM in DEXTROSE 5%-WATER 100 ML IVPB SCH ×3 (03:05→17:39)
[2023-08-16] MEDS: SODIUM CHLORIDE 1,000 ML IV SCH ×2 (03:05→11:12)
[2023-08-16] MEDS: METOCLOPRAMIDE HCL 10 MG/10 ML UNIT DOSE CUP GT SCH ×3 (05:31→22:19)
[2023-08-16 10:21] LABS: BASO % 0.2 % (0-2.0); EOS % 0.3 % (0-4.5); HEMATOCRIT 32.6 % (32.4-45.2); HEMOGLOBIN 11.1 GM/dL (10.7-15.3); LYMPH % 56.7 % (8-40); MCH 34.6 pg (25.7-33.7); MCHC 33.9 g/dl (32.0-36.0); MEAN CELL VOLUME 102.1 fl (80-96); MEAN PLT VOLUME 6.9 fl (7.5-11.1); MONO % 14.6 % (3.8-10.2); NEUT % 28.2 % (42.8-82.8); PLATELET COUNT 140 10^3/uL (134-434); RBC 3.19 M/mm3 (3.60-5.2); RDW 13.2 % (11.6-15.6); WHITE BLOOD COUNT 3.9 K/mm3 (4.0-10.0)
[2023-08-16 10:38] LABS: CHLORIDE 107 mmol/L (98-107); POTASSIUM 3.4 mmol/L (3.5-5.1); SODIUM 141 mmol/L (136-145)
[2023-08-16 10:48] LABS: CALCIUM 8.6 mg/dL (8.5-10.1)
[2023-08-16 10:49] LABS: ALBUMIN 2.3 g/dl (3.4-5.0); ANION GAP 6 mmol/L (4-13); CO2 28 mmol/L (21-32); GLUCOSE,RANDOM 112 mg/dL (74-106); MAGNESIUM 2.5 mg/dL (1.8-2.4)
[2023-08-16 10:50] LABS: BILIRUBIN,TOTAL < 0.1 mg/dL (0.2-1); CREATININE 0.2 mg/dL (0.55-1.3); SGPT/ALT 23 U/L (13-61)
[2023-08-16 10:52] LABS: ALK PHOS 54 U/L (45-117); BLOOD UREA NITROGEN 2.3 mg/dL (7-18); SGOT/AST 46 U/L (15-37)
[2023-08-16] MEDS: lamoTRIgine 25 MG TABLET GT SCH ×2 (11:07→23:08)
[2023-08-16] MEDS: AMINO ACIDS/PROTEIN HYDROLYS 30 ML LIQUID.PKT PEG SCH (11:08)
[2023-08-16] MEDS: HEPARIN NA (PORCINE) 5,000 UNITS/ML 1ML VIAL SQ SCH ×2 (11:08→22:18)
[2023-08-16] MEDS: LACTOBACILLUS ACIDOPHILUS 1 TABLET GT SCH (11:09)
[2023-08-16] MEDS: GLYCOPYRROLATE 1 MG TABLET GT SCH ×2 (11:09→23:08)
[2023-08-16] MEDS: BACLOFEN 10 MG TABLET (FP) GT SCH ×2 (11:09→22:19)
[2023-08-16] MEDS: FLUTICASONE PROP 0.05% 16 GM NASAL SPRAY NS SCH (11:12)
[2023-08-16] MEDS: RUFINAMIDE 40 MG/ML GT SCH ×2 (11:14→22:21)
[2023-08-16] MEDS: [UNRECOGNIZED DRUG - OTHER] GT SCH ×2 (11:14→22:21)
[2023-08-16] MEDS: SENNOSIDES 8.6MG TABLET (FP) PO SCH (11:53)
[2023-08-16] MEDS: POLYETHYLENE GLYCOL (HEALTHYLAX) 3350 17 GM PACKET GT SCH (11:53)
[2023-08-16] MEDS ORDERED: POTASSIUM CHLORIDE ORAL LIQUID 20 MEQ/15 ML GT ONE (13:01)
[2023-08-16] MEDS: LORATADINE 10 MG TABLET GT SCH (22:18)
[2023-08-17] MEDS: ALBUTEROL SO4 2.5/IPRATROPIUM 0.5 INH SOL 3 ML VIAL.NEB. NEB SCH ×6 (00:12→20:35)
[2023-08-17] MEDS: PIPERACILLIN/TAZOB 4.5 GM 4.5 GM in DEXTROSE 5%-WATER 100 ML IVPB SCH ×3 (01:14→17:35)
[2023-08-17] MEDS: METOCLOPRAMIDE HCL 10 MG/10 ML UNIT DOSE CUP GT SCH ×3 (05:44→21:50)
[2023-08-17] MEDS: AMINO ACIDS/PROTEIN HYDROLYS 30 ML LIQUID.PKT PEG SCH (11:03)
[2023-08-17] MEDS: POLYETHYLENE GLYCOL (HEALTHYLAX) 3350 17 GM PACKET GT SCH (11:04)
[2023-08-17] MEDS: SENNOSIDES 8.8 MG/5 ML SYRUP GT SCH (11:04)
[2023-08-17] MEDS: lamoTRIgine 25 MG TABLET GT SCH ×2 (11:05→21:50)
[2023-08-17] MEDS: HEPARIN NA (PORCINE) 5,000 UNITS/ML 1ML VIAL SQ SCH ×2 (11:05→21:50)
[2023-08-17] MEDS: GLYCOPYRROLATE 1 MG TABLET GT SCH ×2 (11:06→21:51)
[2023-08-17] MEDS: BACLOFEN 10 MG TABLET (FP) GT SCH ×2 (11:07→21:50)
[2023-08-17] MEDS: FLUTICASONE PROP 0.05% 16 GM NASAL SPRAY NS SCH (11:07)
[2023-08-17] MEDS: LACTOBACILLUS ACIDOPHILUS 1 TABLET GT SCH (11:07)
[2023-08-17] MEDS: SODIUM CHLORIDE 1,000 ML IV SCH (11:07)
[2023-08-17] MEDS: RUFINAMIDE 40 MG/ML GT SCH ×2 (11:08→21:51)
[2023-08-17] MEDS: [UNRECOGNIZED DRUG - OTHER] GT SCH ×2 (11:08→21:51)
[2023-08-17 13:13] LABS: BASO % 0.4 % (0-2.0); EOS % 0.9 % (0-4.5); HEMATOCRIT 36.2 % (32.4-45.2); HEMOGLOBIN 12.2 GM/dL (10.7-15.3); LYMPH % 43.9 % (8-40); MCH 34.5 pg (25.7-33.7); MCHC 33.8 g/dl (32.0-36.0); MEAN CELL VOLUME 102.1 fl (80-96); MEAN PLT VOLUME 7.4 fl (7.5-11.1); MONO % 10.4 % (3.8-10.2); NEUT % 44.4 % (42.8-82.8); PLATELET COUNT 176 10^3/uL (134-434); RBC 3.55 M/mm3 (3.60-5.2); WHITE BLOOD COUNT 4.5 K/mm3 (4.0-10.0)
[2023-08-17 14:13] LABS: BLOOD UREA NITROGEN 3.6 mg/dL (7-18)
[2023-08-17 14:14] LABS: BILIRUBIN,TOTAL 0.2 mg/dL (0.2-1); CREATININE 0.4 mg/dL (0.55-1.3); TOT PROT 7.2 g/dl (6.4-8.2)
[2023-08-17 14:16] LABS: MAGNESIUM 2.2 mg/dL (1.8-2.4)
[2023-08-17 14:26] LABS: ALBUMIN 2.8 g/dl (3.4-5.0)
[2023-08-17] MEDS: LORATADINE 10 MG TABLET GT SCH (21:51)
[2023-08-18] MEDS: ALBUTEROL SO4 2.5/IPRATROPIUM 0.5 INH SOL 3 ML VIAL.NEB. NEB SCH ×6 (00:15→20:34)
[2023-08-18] MEDS: SODIUM CHLORIDE 1,000 ML IV SCH ×2 (00:25→10:52)
[2023-08-18] MEDS: PIPERACILLIN/TAZOB 4.5 GM 4.5 GM in DEXTROSE 5%-WATER 100 ML IVPB SCH ×3 (01:25→18:28)
[2023-08-18] MEDS: METOCLOPRAMIDE HCL 10 MG/10 ML UNIT DOSE CUP GT SCH ×3 (06:29→22:33)
[2023-08-18 09:23] LABS: BASO % 0.5 % (0-2.0); EOS % 4.3 % (0-4.5); LYMPH % 48.9 % (8-40); MCHC 34.2 g/dl (32.0-36.0); MEAN CELL VOLUME 102.2 fl (80-96); MEAN PLT VOLUME 7.1 fl (7.5-11.1); MONO % 8.9 % (3.8-10.2); NEUT % 37.4 % (42.8-82.8); PLATELET COUNT 205 10^3/uL (134-434); RBC 3.43 M/mm3 (3.60-5.2)
[2023-08-18 09:40] LABS: POTASSIUM 4.2 mmol/L (3.5-5.1)
[2023-08-18 09:53] LABS: CALCIUM 9.2 mg/dL (8.5-10.1)
[2023-08-18 09:54] LABS: ALBUMIN 2.7 g/dl (3.4-5.0); BLOOD UREA NITROGEN 4.9 mg/dL (7-18)
[2023-08-18 09:58] LABS: BILIRUBIN,TOTAL 0.1 mg/dL (0.2-1)
[2023-08-18 10:00] LABS: CREATININE 0.4 mg/dL (0.55-1.3); TOT PROT 7.1 g/dl (6.4-8.2)
[2023-08-18] MEDS: AMINO ACIDS/PROTEIN HYDROLYS 30 ML LIQUID.PKT PEG SCH (10:52)
[2023-08-18] MEDS: BACLOFEN 10 MG TABLET (FP) GT SCH ×2 (10:52→22:32)
[2023-08-18] MEDS: POLYETHYLENE GLYCOL (HEALTHYLAX) 3350 17 GM PACKET GT SCH (10:54)
[2023-08-18] MEDS: HEPARIN NA (PORCINE) 5,000 UNITS/ML 1ML VIAL SQ SCH ×2 (10:54→22:35)
[2023-08-18] MEDS: LACTOBACILLUS ACIDOPHILUS 1 TABLET GT SCH (10:55)
[2023-08-18] MEDS: GLYCOPYRROLATE 1 MG TABLET GT SCH ×2 (10:56→22:34)
[2023-08-18] MEDS: SENNOSIDES 8.8 MG/5 ML SYRUP GT SCH (10:57)
[2023-08-18] MEDS: RUFINAMIDE 40 MG/ML GT SCH ×2 (10:57→22:35)
[2023-08-18] MEDS: FLUTICASONE PROP 0.05% 16 GM NASAL SPRAY NS SCH (10:57)
[2023-08-18] MEDS: [UNRECOGNIZED DRUG - OTHER] GT SCH ×2 (10:57→22:35)
[2023-08-18] MEDS: lamoTRIgine 25 MG TABLET GT SCH ×2 (11:17→22:32)
[2023-08-18] MEDS: LORATADINE 10 MG TABLET GT SCH (22:32)
[2023-08-19] MEDS: ALBUTEROL SO4 2.5/IPRATROPIUM 0.5 INH SOL 3 ML VIAL.NEB. NEB SCH ×6 (00:30→20:27)
[2023-08-19] MEDS: PIPERACILLIN/TAZOB 4.5 GM 4.5 GM in DEXTROSE 5%-WATER 100 ML IVPB SCH ×3 (02:21→18:04)
[2023-08-19] MEDS: METOCLOPRAMIDE HCL 10 MG/10 ML UNIT DOSE CUP GT SCH ×3 (06:36→21:35)
[2023-08-19] MEDS: SODIUM CHLORIDE 1,000 ML IV SCH ×2 (06:40→12:49)
[2023-08-19 09:10] LABS: BASO % 0.5 % (0-2.0); EOS % 3.3 % (0-4.5); HEMATOCRIT 34.9 % (32.4-45.2); HEMOGLOBIN 12.2 GM/dL (10.7-15.3); LYMPH % 33.1 % (8-40); MCH 35.2 pg (25.7-33.7); MCHC 34.9 g/dl (32.0-36.0); MEAN CELL VOLUME 100.9 fl (80-96); MEAN PLT VOLUME 6.6 fl (7.5-11.1); MONO % 7.1 % (3.8-10.2); PLATELET COUNT 266 10^3/uL (134-434); RBC 3.46 M/mm3 (3.60-5.2); RDW 12.8 % (11.6-15.6); WHITE BLOOD COUNT 6.2 K/mm3 (4.0-10.0)
[2023-08-19 09:40] LABS: POTASSIUM 3.7 mmol/L (3.5-5.1)
[2023-08-19 09:51] LABS: CALCIUM 9.6 mg/dL (8.5-10.1)
[2023-08-19 09:52] LABS: BILIRUBIN,TOTAL 0.2 mg/dL (0.2-1); BLOOD UREA NITROGEN 5.3 mg/dL (7-18); MAGNESIUM 1.8 mg/dL (1.8-2.4)
[2023-08-19 09:53] LABS: TOT PROT 7.7 g/dl (6.4-8.2)
[2023-08-19 09:55] LABS: CREATININE 0.4 mg/dL (0.55-1.3)
[2023-08-19] MEDS: LACTOBACILLUS ACIDOPHILUS 1 TABLET GT SCH (10:37)
[2023-08-19] MEDS: BACLOFEN 10 MG TABLET (FP) GT SCH ×2 (10:37→21:35)
[2023-08-19] MEDS: lamoTRIgine 25 MG TABLET GT SCH ×2 (10:37→21:35)
[2023-08-19] MEDS: POLYETHYLENE GLYCOL (HEALTHYLAX) 3350 17 GM PACKET GT SCH (10:37)
[2023-08-19] MEDS: [UNRECOGNIZED DRUG - OTHER] GT SCH ×2 (10:38→21:37)
[2023-08-19] MEDS: RUFINAMIDE 40 MG/ML GT SCH ×2 (10:38→21:37)
[2023-08-19] MEDS: HEPARIN NA (PORCINE) 5,000 UNITS/ML 1ML VIAL SQ SCH ×2 (10:38→21:35)
[2023-08-19] MEDS: GLYCOPYRROLATE 1 MG TABLET GT SCH ×2 (10:39→21:37)
[2023-08-19] MEDS: FLUTICASONE PROP 0.05% 16 GM NASAL SPRAY NS SCH (10:40)
[2023-08-19] MEDS: AMINO ACIDS/PROTEIN HYDROLYS 30 ML LIQUID.PKT PEG SCH (12:49)
[2023-08-19] MEDS: SENNOSIDES 8.8 MG/5 ML SYRUP GT SCH (12:49)
[2023-08-19] MEDS: LORATADINE 10 MG TABLET GT SCH (21:35)
[2023-08-20] MEDS: ALBUTEROL SO4 2.5/IPRATROPIUM 0.5 INH SOL 3 ML VIAL.NEB. NEB SCH ×6 (00:30→21:16)
[2023-08-20] MEDS: PIPERACILLIN/TAZOB 4.5 GM 4.5 GM in DEXTROSE 5%-WATER 100 ML IVPB SCH ×3 (01:35→17:27)
[2023-08-20] MEDS: METOCLOPRAMIDE HCL 10 MG/10 ML UNIT DOSE CUP GT SCH ×3 (05:29→22:24)
[2023-08-20] MEDS: AMINO ACIDS/PROTEIN HYDROLYS 30 ML LIQUID.PKT PEG SCH (08:44)
[2023-08-20] MEDS: SODIUM CHLORIDE 1,000 ML IV SCH ×2 (10:10→22:35)
[2023-08-20] MEDS: lamoTRIgine 25 MG TABLET GT SCH ×2 (10:13→22:26)
[2023-08-20] MEDS: SENNOSIDES 8.8 MG/5 ML SYRUP GT SCH (10:13)
[2023-08-20] MEDS: BACLOFEN 10 MG TABLET (FP) GT SCH ×2 (10:14→22:26)
[2023-08-20] MEDS: POLYETHYLENE GLYCOL (HEALTHYLAX) 3350 17 GM PACKET GT SCH (10:14)
[2023-08-20] MEDS: LACTOBACILLUS ACIDOPHILUS 1 TABLET GT SCH (10:14)
[2023-08-20] MEDS: HEPARIN NA (PORCINE) 5,000 UNITS/ML 1ML VIAL SQ SCH (10:15)
[2023-08-20] MEDS: GLYCOPYRROLATE 1 MG TABLET GT SCH ×2 (10:15→22:25)
[2023-08-20] MEDS: RUFINAMIDE 40 MG/ML GT SCH ×2 (10:16→22:27)
[2023-08-20] MEDS: [UNRECOGNIZED DRUG - OTHER] GT SCH ×2 (10:16→22:27)
[2023-08-20] MEDS: FLUTICASONE PROP 0.05% 16 GM NASAL SPRAY NS SCH (10:16)
[2023-08-20] MEDS: LORATADINE 10 MG TABLET GT SCH (22:26)
[2023-08-21] MEDS: ALBUTEROL SO4 2.5/IPRATROPIUM 0.5 INH SOL 3 ML VIAL.NEB. NEB SCH ×5 (00:15→15:55)
[2023-08-21] MEDS: PIPERACILLIN/TAZOB 4.5 GM 4.5 GM in DEXTROSE 5%-WATER 100 ML IVPB SCH ×3 (01:45→18:31)
[2023-08-21] MEDS: ACETAMINOPHEN 650 MG/20.3 ML ORAL SOLUTION (CUPS) GT PRN (03:46)
[2023-08-21] MEDS: METOCLOPRAMIDE HCL 10 MG/10 ML UNIT DOSE CUP GT SCH ×3 (06:13→22:28)
[2023-08-21] MEDS: SENNOSIDES 8.8 MG/5 ML SYRUP GT SCH (10:23)
[2023-08-21] MEDS: BACLOFEN 10 MG TABLET (FP) GT SCH ×2 (10:23→22:32)
[2023-08-21] MEDS: AMINO ACIDS/PROTEIN HYDROLYS 30 ML LIQUID.PKT PEG SCH (10:23)
[2023-08-21] MEDS: lamoTRIgine 25 MG TABLET GT SCH ×2 (10:23→22:32)
[2023-08-21] MEDS: LACTOBACILLUS ACIDOPHILUS 1 TABLET GT SCH (10:23)
[2023-08-21] MEDS: GLYCOPYRROLATE 1 MG TABLET GT SCH ×2 (10:24→22:30)
[2023-08-21] MEDS: RUFINAMIDE 40 MG/ML GT SCH ×2 (10:24→22:37)
[2023-08-21] MEDS: POLYETHYLENE GLYCOL (HEALTHYLAX) 3350 17 GM PACKET GT SCH (10:24)
[2023-08-21] MEDS: [UNRECOGNIZED DRUG - OTHER] GT SCH ×2 (10:24→22:37)
[2023-08-21] MEDS: SODIUM CHLORIDE 1,000 ML IV SCH (10:26)
[2023-08-21] MEDS: FLUTICASONE PROP 0.05% 16 GM NASAL SPRAY NS SCH (10:38)
[2023-08-21] MEDS: LORATADINE 10 MG TABLET GT SCH (22:31)
[2023-08-21] MEDS: HEPARIN NA (PORCINE) 5,000 UNITS/ML 1ML VIAL SQ SCH (22:31)
[2023-08-22] MEDS: PIPERACILLIN/TAZOB 4.5 GM 4.5 GM in DEXTROSE 5%-WATER 100 ML IVPB SCH ×3 (02:16→17:45)
[2023-08-22 06:23] VITALS: RESP 20
[2023-08-22] MEDS: METOCLOPRAMIDE HCL 10 MG/10 ML UNIT DOSE CUP GT SCH ×3 (06:40→22:12)
[2023-08-22 09:41] LABS: BASO % 0.6 % (0-2.0); EOS % 3.7 % (0-4.5); HEMOGLOBIN 12.4 GM/dL (10.7-15.3); LYMPH % 50.1 % (8-40); MCH 34.2 pg (25.7-33.7); MCHC 33.5 g/dl (32.0-36.0); MONO % 6.9 % (3.8-10.2); NEUT % 38.7 % (42.8-82.8); PLATELET COUNT 352 10^3/uL (134-434); RBC 3.63 M/mm3 (3.60-5.2); RDW 13.2 % (11.6-15.6); WHITE BLOOD COUNT 6.5 K/mm3 (4.0-10.0)
[2023-08-22 10:01] LABS: POTASSIUM 4.2 mmol/L (3.5-5.1)
[2023-08-22 10:12] LABS: CALCIUM 9.6 mg/dL (8.5-10.1)
[2023-08-22 10:13] LABS: MAGNESIUM 2.1 mg/dL (1.8-2.4)
[2023-08-22 10:16] LABS: CREATININE 0.3 mg/dL (0.55-1.3)
[2023-08-22 10:18] LABS: BILIRUBIN,TOTAL 0.2 mg/dL (0.2-1); TOT PROT 7.4 g/dl (6.4-8.2)
[2023-08-22] MEDS: POLYETHYLENE GLYCOL (HEALTHYLAX) 3350 17 GM PACKET GT SCH (11:05)
[2023-08-22] MEDS: GLYCOPYRROLATE 1 MG TABLET GT SCH ×2 (11:06→22:13)
[2023-08-22] MEDS: SENNOSIDES 8.8 MG/5 ML SYRUP GT SCH (11:07)
[2023-08-22] MEDS: SODIUM CHLORIDE 1,000 ML IV SCH (11:07)
[2023-08-22] MEDS: RUFINAMIDE 40 MG/ML GT SCH ×2 (11:08→22:13)
[2023-08-22] MEDS: [UNRECOGNIZED DRUG - OTHER] GT SCH ×2 (11:08→22:13)
[2023-08-22] MEDS: FLUTICASONE PROP 0.05% 16 GM NASAL SPRAY NS SCH (11:34)
[2023-08-22] MEDS: LACTOBACILLUS ACIDOPHILUS 1 TABLET GT SCH (11:36)
[2023-08-22] MEDS: BACLOFEN 10 MG TABLET (FP) GT SCH ×2 (11:37→22:12)
[2023-08-22] MEDS: HEPARIN NA (PORCINE) 5,000 UNITS/ML 1ML VIAL SQ SCH ×2 (11:37→22:11)
[2023-08-22] MEDS: AMINO ACIDS/PROTEIN HYDROLYS 30 ML LIQUID.PKT PEG SCH (12:22)
[2023-08-22] MEDS: lamoTRIgine 25 MG TABLET GT SCH ×2 (14:19→22:11)
[2023-08-22 15:21] VITALS: TEMP 98.2
[2023-08-22] MEDS: LORATADINE 10 MG TABLET GT SCH (22:12)
[2023-08-23] MEDS: METOCLOPRAMIDE HCL 10 MG/10 ML UNIT DOSE CUP GT SCH (06:56)
[2023-08-23] MEDS: SODIUM CHLORIDE 1,000 ML IV SCH (06:56)
[2023-08-23 09:53] VITALS: BP 121/87; PULSE 104
[2023-08-23] MEDS: AMINO ACIDS/PROTEIN HYDROLYS 30 ML LIQUID.PKT PEG SCH (10:05)
[2023-08-23] MEDS: BACLOFEN 10 MG TABLET (FP) GT SCH (10:06)
[2023-08-23] MEDS: RUFINAMIDE 40 MG/ML GT SCH (10:06)
[2023-08-23] MEDS: [UNRECOGNIZED DRUG - OTHER] GT SCH (10:06)
[2023-08-23] MEDS: HEPARIN NA (PORCINE) 5,000 UNITS/ML 1ML VIAL SQ SCH (10:06)
[2023-08-23] MEDS: LACTOBACILLUS ACIDOPHILUS 1 TABLET GT SCH (10:06)
[2023-08-23] MEDS: GLYCOPYRROLATE 1 MG TABLET GT SCH (10:07)
[2023-08-23 10:08] LABS: BASO % 0.5 % (0-2.0); EOS % 1.1 % (0-4.5); HEMATOCRIT 40.8 % (32.4-45.2); MCH 34.2 pg (25.7-33.7); MCHC 34.3 g/dl (32.0-36.0); MEAN CELL VOLUME 99.8 fl (80-96); NEUT % 51.4 % (42.8-82.8); PLATELET COUNT 451 10^3/uL (134-434); RBC 4.09 M/mm3 (3.60-5.2); RDW 13.1 % (11.6-15.6); WHITE BLOOD COUNT 8.8 K/mm3 (4.0-10.0)
[2023-08-23] MEDS: FLUTICASONE PROP 0.05% 16 GM NASAL SPRAY NS SCH (10:11)
[2023-08-23 10:29] LABS: POTASSIUM 4.5 mmol/L (3.5-5.1)
[2023-08-23] MEDS: SENNOSIDES 8.8 MG/5 ML SYRUP GT SCH (10:32)
[2023-08-23] MEDS: POLYETHYLENE GLYCOL (HEALTHYLAX) 3350 17 GM PACKET GT SCH (10:33)
[2023-08-23] MEDS: lamoTRIgine 25 MG TABLET GT SCH (10:33)
[2023-08-23 10:53] LABS: CALCIUM 9.7 mg/dL (8.5-10.1)
[2023-08-23 10:54] LABS: ALBUMIN 3.3 g/dl (3.4-5.0); BLOOD UREA NITROGEN 9.1 mg/dL (7-18); MAGNESIUM 2.2 mg/dL (1.8-2.4)
[2023-08-23 10:57] LABS: CREATININE 0.5 mg/dL (0.55-1.3)
[2023-08-23 10:58] LABS: BILIRUBIN,TOTAL 0.4 mg/dL (0.2-1); TOT PROT 8.4 g/dl (6.4-8.2)
== END 2023-08-23 13:14 | disposition home or self-care (01) | DRG 720 ==
LOC: JER 09:50 → JERBED 13:35 → J8W 08-14 15:22
PROVIDERS: ADMIT Internal Medicine; ATTEND Nurse Practitioner Family
DX: A41.9 Sepsis, unspecified organism (principal); J69.0 Pneumonitis due to inhalation of food and vomit; E46 Unspecified protein-calorie malnutrition; R53.2 Functional quadriplegia; E87.20 Acidosis, unspecified; E87.1 Hypo-osmolality and hyponatremia; E87.6 Hypokalemia; G40.909 Epilepsy, unspecified, not intractable, without status epilepticus; J45.909 Unspecified asthma, uncomplicated; F73 Profound intellectual disabilities; Z68.24 Body mass index [BMI] 24.0-24.9, adult
CPT/HCPCS: 0241U-QW; 36415; 71045-TC-FY; 80048; 80053; 80164; 81003; 82803; 82962; 83605; 83735; 84100; 84484; 85025; 87040; 87086; 87635; 93005; 93010; 94640; 94761; 99285-25; J0475; J1644

== ENCOUNTER 2024-10-31 12:17 | Emergency (ER) | payer OTHER ==
[2024-10-31 12:52] VITALS: RESP 18; TEMP 98.5; BMI 24.0
[2024-10-31 13:47] LABS: BASO % 0.4 % (0-2.0); EOS % 0.8 % (0-4.5); HEMATOCRIT 42.6 % (32.4-45.2); HEMOGLOBIN 14.5 GM/dL (10.7-15.3); LYMPH % 53.1 % (8-40); MCH 34.5 pg (25.7-33.7); MEAN CELL VOLUME 101.6 fl (80-96); MEAN PLT VOLUME 6.9 fl (7.5-11.1); MONO % 4.8 % (3.8-10.2); NEUT % 40.9 % (42.8-82.8); PLATELET COUNT 301 10^3/uL (134-434); RDW 12.5 % (11.6-15.6); WHITE BLOOD COUNT 6.2 K/mm3 (4.0-10.0)
[2024-10-31 13:57] LABS: PH,URINE >= 9.0 (5.0-8.0); URINE APPEARANCE CLEAR; URINE BILIRUBIN NEGATIVE (NEGATIVE); URINE COLOR YELLOW; URINE GLUCOSE (UA) NEGATIVE (NEGATIVE); URINE KETONE NEGATIVE (NEGATIVE); URINE LEUK ESTERASE NEGATIVE (NEGATIVE); URINE NITRITE NEGATIVE (NEGATIVE); URINE PROTEIN NEGATIVE (NEGATIVE); URINE UROBILINOGEN 0.2 mg/dL (0.2-1.0)
[2024-10-31 14:08] LABS: POTASSIUM 4.7 mmol/L (3.5-5.1)
[2024-10-31 14:10] LABS: ALBUMIN 3.7 g/dl (3.4-5.0); CALCIUM 10.2 mg/dL (8.5-10.1)
[2024-10-31 14:11] LABS: BLOOD UREA NITROGEN 5.4 mg/dL (7-18)
[2024-10-31 14:15] LABS: BILIRUBIN,TOTAL 0.3 mg/dL (0.2-1); CREATININE 0.4 mg/dL (0.55-1.3)
[2024-10-31 14:20] LABS: LACTIC ACID 2.1 mmol/L (0.4-2.0)
[2024-10-31] MEDS: SODIUM CHLORIDE 0.9% 500 ML INFUS.BAG IV ONE (15:01)
[2024-10-31] MEDS ORDERED: ALBUTEROL SO4 2.5/IPRATROPIUM 0.5 INH SOL 3 ML VIAL.NEB. NEB ONE (17:08)
[2024-10-31] MEDS ORDERED: DEXAMETHASONE SOD PHOSPHATE 10 MG/1 ML VIAL ONE (17:09)
[2024-10-31] MEDS: ALBUTEROL SO4 2.5/IPRATROPIUM 0.5 INH SOL 3 ML VIAL.NEB. NEB ONE (17:19)
[2024-10-31] MEDS: DEXAMETHASONE SOD PHOSPHATE 10 MG/1 ML VIAL IVPUSH ONE (17:19)
[2024-10-31] MEDS: BUDESONIDE 0.5 MG/2 ML INH SUSP VIAL NEB ONE (18:09)
[2024-10-31 21:13] VITALS: PULSE 97
[2024-10-31 22:43] VITALS: BP 130/84
== END 2024-10-31 23:46 | disposition home or self-care (01) ==
LOC: JER 12:17
PROC: 3E033GC Introduction of Other Therapeutic Substance into Peripheral Vein, Percutaneous Approach (ICD-10-PCS; principal; 2024-10-31)
PROC: 3E0F7GC Introduction of Other Therapeutic Substance into Respiratory Tract, Via Natural or Artificial Opening (ICD-10-PCS; 2024-10-31)
DX: U07.1 COVID-19 (principal); R05.9 Cough, unspecified; R09.81 Nasal congestion; R11.10 Vomiting, unspecified
CPT/HCPCS: 0241U-QW; 36415; 71045-TC-FY; 80053; 81003; 83605; 84484; 85025; 87077; 87086; 93005; 93010; 99285-25; J1100